=== PATIENT | female | born 1940 | race Caucasian/White ===

== ENCOUNTER 2018-07-18 12:03 | Inpatient (IN) ==
[2018-07-18 13:14] LABS: Basophils % 0.3 %; Eosinophils # 0.1 K/mcL (0.0-0.6); Eosinophils % 0.8 %; Hematocrit 34.2 % (35.3-44.9); Hemoglobin 11.3 g/dL (11.5-15.4); Immature Granulocytes % 1.7 % (0-4); Lymphocytes # 0.7 K/mcL (0.6-4.6); Lymphocytes % 5.5 %; Mean Corpuscular Hemoglobin 29.4 pg (28.0-33.3); Mean Corpuscular Volume 88.8 fL (83.0-100.0); Mean Platelet Volume 11.7 fL (9.4-12.4); Monocytes # 0.6 K/mcL (0.0-1.3); Monocytes % 4.8 %; Neutrophils # 10.2 K/mcL (1.6-8.9); Nucleated Red Blood Cells 0.3 /100 WBC (0); Platelet Count 174 K/mcL (140-400); Red Blood Count 3.85 M/mcL (3.82-4.97); Red Cell Distribution Width 16.5 % (11.5-14.5); Segmented Neutrophils % 86.9 %
[2018-07-18 14:08] LABS: Bilirubin,Urine Negative (Negative); Blood,Urine Negative (Negative); Color,Urine Yellow (Yellow); Glucose,Urine (UA) 100 mg/dL (Normal); Ketones,Urine Negative (Negative); Leukocyte Esterase,Urine Large (Negative); Nitrite,Urine Negative (Negative); PH,Urine 5.5 pH Units (5.0-8.0); Protein,Urine Negative (Neg-Trace); Specific Gravity,Urine 1.017 (1.010-1.025); Urobilinogen,Urine Normal (Normal)
[2018-07-18 14:09] LABS: Bacteria,Urine None Seen per hpf (None-Few); Hyaline Casts,Urine None Seen per lpf (None-Few); RBC,Urine 0-3 per hpf (0-3); Squamous Epithelial Cell,Urine Many per lpf (None-Few); WBC,Urine 50-100 per hpf (0-3)
[2018-07-18 14:11] LABS: Clarity,Urine Clear (Clear)
[2018-07-18] MEDS ORDERED: cefTRIAXone 1,000 MG in Water for inj. (sterile) 20 ML 10 ML IVP ONE (14:29)
--- NOTE | 2018-07-18 15:03 | Emergency Department Note ---
Disposition Clinical Impression: UTI (urinary tract infection) Qualifiers: Urinary tract infection type: site unspecified Hematuria presence: without hematuria Qualified Code(s): N39.0 - Urinary tract infection, site not specified Disposition: Admitted As Inpatient Condition: Good Referrals: Wiliam Rangel DO [Primary Care Provider] - General Adult HPI - General Chief complaint: ED Urogenital-Female Stated complaint: UTI Time Seen by Provider: 07/18/18 12:21 Source: patient, family Limitations: no limitations Nursing Notes Reviewed: Yes Vital Signs Reviewed: Yes - History of Present Illness HPI Narrative: Patient presents today for evaluation of generalized weakness. Patient states that she has had a urinary tract infection for the last 2 weeks. Patient states that she put it off but then was eventually put on Levaquin. Patient states Levaquin did not help her symptoms and she has had continued dysuria as well as declining strength. Patient states that she is now feeling mildly nauseous. She is not had fevers or chills. She lives with her who helps take care of her. Pain Scale: 0 - Related Data Allergies Allergy/AdvReac Type Severity Reaction Status Date / Time sulfamethoxazole Allergy Shakiness Verified 07/18/18 12:33 [From Bactrim] trimethoprim [From Bactrim] Allergy Shakiness Verified 07/18/18 12:33 Review of Systems: As Per HPI Constitutional: Reports: weakness. Denies: fever, chills Cardiovascular: Denies: chest pain, palpitations Respiratory: Denies: cough Gastrointestinal: Reports: nausea Genitourinary: Reports: dysuria Musculoskeletal: Denies: back pain Integumentary: Denies: rash Past Medical History - Past Medical History Medical history: Reports: coronary artery disease, diabetes, hypertension, renal disease - Social History Smoking Status: Never smoker Smokeless Tobacco Status: No Alcohol use: Reports: none Drug use: Reports: none Physical Exam General: Well appearing, no acute distress Head: Normocephalic Atraumatic Eyes: PERRL, EOMI ENT: Airway patent, no stridor Neck: supple Chest: Lungs clear to auscultation bilateral Cardiac: Regular rhythm Abdomen: soft, nontender, nondistended; no guarding, rebound, or tenderness to percussion Skin: No rash, normal skin tone Neuro: Alert and Oriented to person, place, and time; No focal deficit - General Limitations: no limitations General appearance: alert, in no apparent distress Course - Reevaluation(s) Reevaluation #1: Patient with mildly elevated white count and significant urinary tract infection. Sent for culture. Ceftriaxone given. Patient will be brought in secondary to failed outpatient management and clinically worsening condition. - Consultations Consultation #1: Discussed with hospitalist. Patient accepted for admission. Vital Signs Temperature 98.0 F 07/18/18 12:22 Pulse Rate 80 07/18/18 12:22 Respiratory Rate 15 07/18/18 12:22 Blood Pressure 111/63 07/18/18 12:22 O2 Sat by Pulse Oximetry 96 07/18/18 12:22 Temperature 98.0 F 07/18/18 12:30 Pulse Rate 78 07/18/18 13:41 Respiratory Rate 14 07/18/18 13:41 Blood Pressure 117/53 07/18/18 13:41 O2 Sat by Pulse Oximetry 98 07/18/18 13:41 Oxygen Delivery Oxygen Delivery Room Air Medical Decision Making - Lab Data Result diagrams: 07/18/18 12:39 Lab Results 07/18/18 07/18/18 Range/Units 12:39 13:50 WBC 11.7 H (4.3-11.1) K/mcL RBC 3.85 (3.82-4.97) M/mcL Hgb 11.3 L (11.5-15.4) g/dL Hct 34.2 L (35.3-44.9) % MCV 88.8 (83.0-100.0) fL MCH 29.4 (28.0-33.3) pg MCHC 33.0 (31.6-35.5) g/dL RDW 16.5 H (11.5-14.5) % Plt Count 174 (140-400) K/mcL MPV 11.7 (9.4-12.4) fL Immature Gran % 1.7 (0-4) % Seg Neutrophils % 86.9 % Lymphocytes % 5.5 % Monocytes % 4.8 % Eosinophils % 0.8 % Basophils % 0.3 % Neutrophils # 10.2 H (1.6-8.9) K/mcL Lymphocytes # 0.7 (0.6-4.6) K/mcL Monocytes # 0.6 (0.0-1.3) K/mcL Eosinophils # 0.1 (0.0-0.6) K/mcL Basophils # 0.0 (0.0-0.2) K/mcL Nucleated RBCs/100 WBC 0.3 H (0) /100 WBC Urine Color Yellow (Yellow) Urine Clarity Clear (Clear) Urine pH 5.5 (5.0-8.0) pH Units Ur Specific [place] 1.017 (1.010-1.025) Urine Protein Negative (Neg-Trace) mg/dL Urine Glucose (UA) 100 H (Normal) mg/dL Urine Ketones Negative (Negative) mg/dL Urine Blood Negative (Negative) Urine Nitrite Negative (Negative) Urine Bilirubin Negative (Negative) Urine Urobilinogen Normal (Normal) mg/dL Ur Leukocyte Esterase Large H (Negative) Urine Microscopic RBC 0-3 (0-3) per hpf Urine Microscopic WBC 50-100 H (0-3) per hpf Ur Squamous Epith Cells Many H (None-Few) per lpf Urine Bacteria None Seen (None-Few) per hpf Hyaline Casts None Seen (None-Few) per lpf Ur Culture Indicated? NO. A (NO)
[2018-07-18 15:25] LABS: Alanine Aminotransferase 15 Units/L (7-52); Albumin 2.8 g/dL (3.5-5.7); Albumin/Globulin Ratio 0.9 (1.1-2.2); Alkaline Phosphatase 49 Units/L (34-104); Aspartate Amino Transferase 12 Units/L (13-39); BUN/Creatinine Ratio 33 (6-26); Bilirubin,Total 0.4 mg/dL (0.3-1.0); Blood Urea Nitrogen 37 mg/dL (8-23); Calcium 9.9 mg/dL (8.6-10.3); Carbon Dioxide 24 mEq/L (23-29); Chloride 101 mEq/L (98-107); Glucose 317 mg/dL (70-105); Osmolality,Calculated 297 (280-300); Potassium 4.9 mEq/L (3.5-5.1); Sodium 133 mEq/L (136-145); Total Protein 5.8 g/dL (6.4-8.9); Troponin I < 0.03 ng/mL (< 0.04); eGFR For Non-African Americans 47 (> 60)
[2018-07-18] MEDS ORDERED: Naloxone 0.4 MG/ML INJ IVP PRN (15:37)
[2018-07-18] MEDS ORDERED: 0.9 % Sodium Chloride 500 ML IVC PRN (16:14)
[2018-07-18] MEDS: 0.9 % Sodium Chloride 1,000 ML IVC SCH (16:15)
[2018-07-18] MEDS ORDERED: Warfarin perPT PO SCH (16:15)
--- NOTE | 2018-07-18 16:20 | Internal Med History&Physical ---
Date of Encounter: 07/18/18 Time of Encounter: 15:50 Internal Medicine - H&P: HPI Chief complaint: unresolving dysuria Admitted From: Home History of present illness: Ms. Cleaning is a 77 year old female with history of diabetes, CAD status post PCI , DVT, hyperlipidemia, hypothyroidism, presented to the ED with persistent dysuria. She states that her symptom first started around 9 weeks ago but she only sought after medical size about 3 weeks ago when she was first given a course of Levaquin. According to the family, urine culture later came back with an organism that was sensitive to nitrofurantoin and it was switched to macrobid about a week ago. Despite a prolonged course of antibiotics, she continued to complain of dysuria and developed generalized weakness 2-3 days ago. Denies fever but has chills and nausea. No vomiting, flank pain, abdominal pain, or change in bowel habits. Denies any chest pain, shortness of breath, palpitation, orthopnea, PND, or leg swelling. No personal or family history of nephrolithiasis. In the ED, she was afebrile and hemodynamically stable. Investigation showed leukocytosis of 11.7, creatinine of 1.12 (unknown baseline) , and negative troponin. Urinalysis showed large amount of leukocyte esterase. Chest x-ray did not show any acute cardiopulmonary process. She was given IV Rocephin in the ED and admitted for further management. . Past Med Surg Social Fam HX - Past Medical History Attestation: Yes The following information was validated with the patient. Medical history: coronary artery disease, diabetes, hypertension - Past Surgical History Additional surgical history: PCI - Social History Smoking Status: Never smoker Smokeless Tobacco Status: No Alcohol use: none Drug use: none - Family History Mother History Unknown: Yes Father History Unknown: Yes Internal Medicine - H&P: Meds Atorvastatin Calcium [Lipitor] 20 mg PO QPM 07/18/18 [History] Gabapentin [Neurontin] 300 mg PO BID 07/18/18 [History] Insulin ASPART [NovoLOG] 5 unit SQ TID 07/18/18 [History] Insulin Glargine [Lantus] 4 unit SQ HS 07/18/18 [History] Levothyroxine [Synthroid] 100 mcg PO QAM 07/18/18 [History] Metformin HCl 1,000 mg PO BID 07/18/18 [History] Nitrofurantoin Monohyd/M-Cryst [Macrobid 100 mg Capsule] 100 mg PO BID 07/18/18 [History] Spironolactone [Aldactone] 25 mg PO DAILY 07/18/18 [History] Warfarin Sodium 7.5 mg PO DAILY 07/18/18 [History] 3 Allergy/AdvReac Type Severity Reaction Status Date / Time sulfamethoxazole Allergy Shakiness Verified 07/18/18 12:33 [From Bactrim] trimethoprim [From Bactrim] Allergy Shakiness Verified 07/18/18 12:33 All Systems PM: A 10-system review of systems was performed and is negative for pertinent findings except as documented above in the HPI. - Constitutional Vitals: Temp Pulse Resp BP Pulse Ox 98.0 F 63 18 98/47 99 07/18/18 12:30 07/18/18 15:52 07/18/18 15:52 07/18/18 15:52 07/18/18 15:52 Exam: General: Lethargic but alert and oriented x 3 HEENT:EOM, pupils equal, round and reactive. Cardiovascular:Normal S1 & S2, No JVD. Pulse regular. Lungs: clear to auscultation, no wheezes/rales Abdomen:Soft, non-tender, no rigidity. No CVA tenderness Extremities:No deformity or swelling Neurological:Normal cognition and motor skills. Non-focal Skin:Normal color, no rash, no lesions. Pulses:Carotid and radial pulses normal +2. Rest of the physical exam is non contributory Internal Med - H&P Results - Labs CBC & Chem 7: 07/18/18 12:39 07/18/18 12:39 Labs: Short CBC 07/18/18 Range/Units 12:39 WBC 11.7 H (4.3-11.1) K/mcL Hgb 11.3 L (11.5-15.4) g/dL Hct 34.2 L (35.3-44.9) % Plt Count 174 (140-400) K/mcL Neutrophils # 10.2 H (1.6-8.9) K/mcL BMP 07/18/18 12:39 Sodium 133 L Potassium 4.9 Chloride 101 Carbon Dioxide 24 BUN 37 H Creatinine 1.12 Glucose 317 H Calcium 9.9 Cardiac Enzymes 07/18/18 Range/Units 12:39 Troponin I < 0.03 (< 0.04) ng/mL Liver Function 07/18/18 Range/Units 12:39 Total Bilirubin 0.4 (0.3-1.0) mg/dL AST 12 L (13-39) Units/L ALT 15 (7-52) Units/L Alkaline Phosphatase 49 (34-104) Units/L Albumin 2.8 L (3.5-5.7) g/dL Urine 07/18/18 Range/Units 13:50 Urine Color Yellow (Yellow) Urine Clarity Clear (Clear) Urine pH 5.5 (5.0-8.0) pH Units Ur Specific [place] 1.017 (1.010-1.025) Urine Protein Negative (Neg-Trace) mg/dL Urine Glucose (UA) 100 H (Normal) mg/dL - Impressions ITS Impressions Chest X-Ray 07/18/18 12:27 IMPRESSION: 1. Probable small right pleural effusion with bibasilar opacities, likely reflecting atelectasis given low lung volumes. 2. Deformity of the right proximal humerus likely related to prior trauma. D/ / 07/18/2018 13:05:48 Ilana Morris MD / [email or web address] Interpreting Provider: Ilana Morris MD - Assessment and plan (1) UTI (urinary tract infection) Current Visit: Yes Status: Acute Assessment and plan: Presented with UTI failed outpatient therapy, concerning for complicated UTI. Was tried on Levaquin and nitrofurantoin as an outpatient without clinical improvement We will empirically start on IV Rocephin Blood culture and urine culture Check lactic acid Ultrasound retroperitoneum to rule out obstructive uropathy Qualifiers: Urinary tract infection type: site unspecified Hematuria presence: without hematuria Qualified Code(s): N39.0 - Urinary tract infection, site not specified (2) ENRIQUE (acute kidney injury) Current Visit: Yes Status: Acute Assessment and plan: Creatinine 1.12, unknown baseline. We will give her IV fluid overnight today and reassess. Ultrasound as above (3) CAD (coronary artery disease) Current Visit: Yes Status: Acute Assessment and plan: Does not seem to be on aspirin or beta angelina as an outpatient We will continue statin Qualifiers: Coronary Disease-Associated Artery/Lesion type: unspecified vessel or lesion type [place] vs. 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 We will check INR and defer Coumadin dosing to pharmacy Qualifiers: DVT location: lower extremity Affected thrombotic vein of extremity: unspecified vein of extremity Chronicity: unspecified Laterality: unspecified laterality Qualified Code(s): I82.409 - Acute embolism and thrombosis of unspecified deep veins of unspecified lower extremity - Time Spent With Patient Total time spent is greater than 50% in coordination of care (as documented) at patient's floor/unit and/or counseling patient:
[2018-07-18] MEDS ORDERED: Dextrose Gel 15 GM/37.5 ML TUBE PO PRN ×2 (16:27)
[2018-07-18] MEDS ORDERED: *HR* Dextrose 50 % in Water (Syg) 50 ML SYRINGE IVP PRN (16:27)
[2018-07-18] MEDS ORDERED: D5% in Water 1,000 ML IVC PRN (16:27)
[2018-07-18 16:39] LABS: Prothrombin Time 120.4 Seconds (9.4-12.1)
[2018-07-18 16:40] LABS: INR 10.7
[2018-07-18] MEDS ORDERED: *HR* Phytonadione 5 MG TABLET PO ONE (16:48)
--- NOTE | 2018-07-18 17:03 | Electrocardiograph Report ---
[employer] Test Date: 2018-07-18 Pat Name: Olivia Cleaning Department: [id number] Room: Gender: F Information Technology Instructor: : 1940 Requested By: [id number] Order Number: [id number] Reading MD: Otis Case Measurements Intervals [place] Rate: 72 P: 48 FL: 184 QRS: -29 QRSD: 96 T: 66 QT: 366 QTc: 401 Interpretive Statements Sinus rhythm Borderline left axis deviation Low voltage, precordial leads Consider anterior infarct Baseline wander in lead(s) I III aVL V1 Electronically Signed On 07-18-2018 17:01:08 EDT by Otis Case
[2018-07-18] MEDS: Insulin LISPRO 300 UNITS/3 ML VIAL SQ SCH ×3 (20:12→20:26)
[2018-07-18] MEDS: Gabapentin 300 MG CAPSULE PO SCH (20:25)
[2018-07-18] MEDS: Insulin DETEMIR 100 UNIT/ML X5UNITS SQ SCH (20:56)
[2018-07-19] MEDS: 0.9 % Sodium Chloride 1,000 ML IVC SCH (02:23)
[2018-07-19 03:32] LABS: Basophils % 0.3 %; Eosinophils # 0.1 K/mcL (0.0-0.6); Eosinophils % 1.7 %; Hematocrit 30.6 % (35.3-44.9); Hemoglobin 10.3 g/dL (11.5-15.4); Immature Granulocytes % 1.6 % (0-4); Lymphocytes # 0.8 K/mcL (0.6-4.6); Mean Corpuscular HGB Conc 33.7 g/dL (31.6-35.5); Mean Corpuscular Hemoglobin 30.7 pg (28.0-33.3); Mean Corpuscular Volume 91.3 fL (83.0-100.0); Mean Platelet Volume 11.4 fL (9.4-12.4); Monocytes # 0.5 K/mcL (0.0-1.3); Neutrophils # 5.9 K/mcL (1.6-8.9); Platelet Count 159 K/mcL (140-400); Red Blood Count 3.35 M/mcL (3.82-4.97); Red Cell Distribution Width 16.3 % (11.5-14.5); Segmented Neutrophils % 78.4 %
[2018-07-19 03:44] LABS: Prothrombin Time 16.8 Seconds (9.4-12.1)
[2018-07-19 03:45] LABS: INR 1.5
[2018-07-19 06:38] LABS: BUN/Creatinine Ratio 30 (6-26); Blood Urea Nitrogen 23 mg/dL (8-23); Calcium 9.5 mg/dL (8.6-10.3); Carbon Dioxide 25 mEq/L (23-29); Chloride 110 mEq/L (98-107); Glucose 178 mg/dL (70-105); Osmolality,Calculated 296 (280-300); Potassium 4.2 mEq/L (3.5-5.1); Sodium 139 mEq/L (136-145); eGFR For Non-African Americans > 60 (> 60)
[2018-07-19] MEDS: Insulin LISPRO 300 UNITS/3 ML VIAL SQ SCH ×7 (08:39→21:59)
[2018-07-19] MEDS: Gabapentin 300 MG CAPSULE PO SCH ×2 (08:44→20:16)
[2018-07-19] MEDS ORDERED: *HR* Warfarin 7.5 MG TABLET PO SCH (09:00)
--- NOTE | 2018-07-19 11:08 | Internal Med Progress Note ---
Hospitalist Progress Note - Encounter Date of Encounter: 07/19/18 Time of Encounter: 10:20 - Subjective Interval History: Patient states that she feels stronger and has more appetite, denies fever/ chills, N/V, or flank pain. - Exam Vitals: Temp Pulse Resp BP Pulse Ox 97.7 F 67 15 139/68 94 07/19/18 07:37 07/19/18 07:37 07/19/18 07:37 07/19/18 07:37 07/19/18 07:37 Exam: General: Alert and oriented x 3 Cardiovascular:Normal S1 & S2, No JVD. Pulse regular. Lungs: clear to auscultation, no wheezes/rales Abdomen:Soft, non-tender, no rigidity. No CVA tenderness Neurological:Normal cognition and motor skills. Non-focal - Assessment and Plan (1) UTI (urinary tract infection) Current Visit: Yes Status: Acute Assessment and Plan: Presented with UTI failed outpatient therapy, concerning for complicated UTI. Was tried on Levaquin and nitrofurantoin as an outpatient without clinical improvement lactic acid normal Improving on IV Rocephin, D2 today Blood culture and urine culture results pending Ultrasound retroperitoneum today to rule out obstructive uropathy (2) ENRIQUE (acute kidney injury) Current Visit: Yes Status: Acute Assessment and Plan: Creatinine 1.12 -> 0.77, improving on IVF Ultrasound as above (3) DVT (deep venous thrombosis) Current Visit: No Status: Acute Assessment and Plan: Prior history of DVT on Coumadin. Had supratherapeutic INR yesterday for which she was given 1 dose of Vit K 1.5 today, resume coumadin, dosing per pharmacy (4) CAD (coronary artery disease) Current Visit: Yes Status: Acute Assessment and Plan: Does not seem to be on aspirin or beta angelina as an outpatient We will continue statin (5) Diabetes mellitus Current Visit: Yes Status: Acute Assessment and Plan: On Lantus 40 units and lispro 5 units 3 times a day with meals in addition to metformin 1g BID will hold off on OHGA, resume home dose of insulin with LDSS DVT Prophylaxis: coumadin as above - Time Spent with Patient Total time spent is greater than 50% in coordination of care (as documented) at patient's floor/unit and/or counseling patient: Plan of Care Discussed with: nurse Internal Medicine: Result - Labs CBC & Chem 7: 07/19/18 03:04 07/19/18 05:54 Labs: Short CBC 07/19/18 Range/Units 03:04 WBC 7.5 (4.3-11.1) K/mcL Hgb 10.3 L (11.5-15.4) g/dL Hct 30.6 L (35.3-44.9) % Plt Count 159 (140-400) K/mcL Neutrophils # 5.9 (1.6-8.9) K/mcL BMP 07/19/18 05:54 Sodium 139 Potassium 4.2 Chloride 110 H Carbon Dioxide 25 BUN 23 Creatinine 0.77 Glucose 178 H Calcium 9.5 - ABG Interpretation ABG results: PT/INR, D-dimer PT 16.8 Seconds (9.4-12.1) H D 07/19/18 03:04 Consult Discharge Plan - Plan Referrals: Wiliam Rangel DO [Primary Care Provider] - (1) UTI (urinary tract infection) Qualifiers: Urinary tract infection type: site unspecified Hematuria presence: without hematuria Qualified Code(s): N39.0 - Urinary tract infection, site not specified (3) DVT (deep venous thrombosis) Qualifiers: DVT location: lower extremity Affected thrombotic vein of extremity: unspecified vein of extremity Chronicity: unspecified Laterality: unspecified laterality Qualified Code(s): I82.409 - Acute embolism and thrombosis of unspecified deep veins of unspecified lower extremity (4) CAD (coronary artery disease) Qualifiers: Coronary Disease-Associated Artery/Lesion type: unspecified vessel or lesion type [place] vs. transplanted heart: [place] heart Associated angina: without angina Qualified Code(s): I25.10 - Atherosclerotic heart disease of [place] coronary artery without angina pectoris (5) Diabetes mellitus Qualifiers: Diabetes mellitus type: type 2 Diabetes mellitus fdc insulin use: with fdc use Diabetes mellitus complication status: with unspecified complications Qualified Code(s): E11.8 - Type 2 diabetes mellitus with unspecified complications; Z79.4 - termite helper (current) use of insulin
[2018-07-19 13:47] LABS: Acinetobacter baumannii by PCR Not Detected (Not Detect); Candida albicans by PCR Not Detected (Not Detect); Candida glabrata by PCR Not Detected (Not Detect); Candida krusei by PCR Not Detected (Not Detect); Candida parapsilosis by PCR Not Detected (Not Detect); Candida tropicalis by PCR Not Detected (Not Detect); Enterobacter cloacae Cmplx PCR Not Detected (Not Detect); Enterobacteriaceae by PCR Not Detected (Not Detect); Enterococcus by PCR Not Detected (Not Detect); Escherichia coli by PCR Not Detected (Not Detect); Klebsiella oxytoca by PCR Not Detected (Not Detect); Klebsiella pneumoniae by PCR Not Detected (Not Detect); Proteus by PCR Not Detected (Not Detect); Pseudomonas aeruginosa by PCR Not Detected (Not Detect); Serratia marcescens by PCR Not Detected (Not Detect); Staphylococcus aureus by PCR Not Detected (Not Detect); Staphylococcus by PCR DETECTED (Not Detect); Streptococcus agalactiae(B)PCR Not Detected (Not Detect); Streptococcus by PCR Not Detected (Not Detect); Streptococcus pneumoniae PCR Not Detected (Not Detect); Streptococcus pyogenes (A) PCR Not Detected (Not Detect); blaKPC Carbapenem-Resist Gene Not Detected (Not Detect); mecA Methicillin-Resist Gene DETECTED (Not Detect); vanA/B Vancomycin-Resist Genes Not Detected (Not Detect)
[2018-07-19] MEDS: cefTRIAXone 1,000 MG in Water for inj. (sterile) 20 ML 10 ML IVP SCH (17:19)
[2018-07-19] MEDS ORDERED: *HR* Warfarin 7.5 MG TABLET PO ONE (18:00)
[2018-07-19] MEDS: Insulin DETEMIR 100 UNIT/ML X5UNITS SQ SCH (20:16)
[2018-07-20 07:43] LABS: INR 1.5
[2018-07-20] MEDS: Gabapentin 300 MG CAPSULE PO SCH ×2 (08:04→21:43)
[2018-07-20] MEDS: Insulin LISPRO 300 UNITS/3 ML VIAL SQ SCH ×7 (08:36→21:44)
[2018-07-20] MEDS ORDERED: *HR* Labetalol 20 MG/4 ML SYRINGE IVP PRN (10:49)
--- NOTE | 2018-07-20 10:52 | Internal Med Progress Note ---
Hospitalist Progress Note - Encounter Date of Encounter: 07/20/18 Time of Encounter: 10:00 - Subjective Interval History: Continues to feel stronger and eating well. No fever/chills, N/V, or flank pain. Dysuria improving. - Exam Vitals: Temp Pulse Resp BP Pulse Ox 98.1 F 80 16 172/70 95 07/20/18 08:00 07/20/18 08:00 07/20/18 08:00 07/20/18 08:00 07/20/18 08:00 Exam: General: Alert and oriented x 3 Cardiovascular:Normal S1 & S2, No JVD. Pulse regular. Lungs: clear to auscultation, no wheezes/rales Abdomen:Soft, non-tender, no rigidity. No CVA tenderness Neurological:Normal cognition and motor skills. Non-focal - Assessment and Plan (1) UTI (urinary tract infection) Current Visit: Yes Status: Acute Assessment and Plan: Presented with UTI failed outpatient therapy, concerning for complicated UTI. Was tried on Levaquin and nitrofurantoin as an outpatient without clinical improvement lactic acid normal Improving on IV Rocephin, D3 today US retroperitoneum unremarkable Blood cultures came out +ve for GPC (not S. aureus) with methicillin resistant gene in 1 set only -> suspect contamination, unlikely significant as patient is improving on rocephin only nevertheless, till final speciation and sensitivity returns, will give a few doses of IV Vanc urine culture results pending (2) ENRIQUE (acute kidney injury) Current Visit: Yes Status: Acute Assessment and Plan: Creatinine 1.12 -> 0.77, improved on IVF and now eating well Ultrasound finding as above (3) DVT (deep venous thrombosis) Current Visit: No Status: Acute Assessment and Plan: Prior history of DVT on Coumadin. Had supratherapeutic INR yesterday for which she was given 1 dose of Vit K now subtherapeutic resume coumadin, dosing per pharmacy (4) CAD (coronary artery disease) Current Visit: Yes Status: Acute Assessment and Plan: Does not seem to be on aspirin or beta angelina as an outpatient We will continue statin (5) Diabetes mellitus Current Visit: Yes Status: Acute Assessment and Plan: On Lantus 40 units and lispro 5 units 3 times a day with meals in addition to metformin 1g BID will hold off on OHGA, resume home dose of insulin with LDSS BG 120-140 yesterday (6) Hypertension Current Visit: Yes Status: Acute Assessment and Plan: started to become hypertensive, was on aldactone at home which is on hold given her history of CAD, would benefit from bb PRN labetalol will consider starting her on coreg upon discharge DVT Prophylaxis: coumadin as above - Time Spent with Patient Total time spent is greater than 50% in coordination of care (as documented) at patient's floor/unit and/or counseling patient: Plan of Care Discussed with: nurse Internal Medicine: Result - Labs CBC & Chem 7: 07/19/18 03:04 07/19/18 05:54 - ABG Interpretation ABG results: PT/INR, D-dimer PT 17.0 Seconds (9.4-12.1) H 07/20/18 06:57 - Impressions Impressions Retroperitoneum Ultrasound 07/19/18 14:00 IMPRESSION: Unremarkable ultrasound of the kidneys and urinary bladder. D/ / Betty Duran Cha, MD / Betty Duran Cha, MD Interpreting Provider: Betty Duran Cha, MD Consult Discharge Plan - Plan Referrals: Wiliam Rangel, [Primary Care Provider] - (1) UTI (urinary tract infection) Qualifiers: Urinary tract infection type: site unspecified Hematuria presence: without hematuria Qualified Code(s): N39.0 - Urinary tract infection, site not specified (3) DVT (deep venous thrombosis) Qualifiers: DVT location: lower extremity Affected thrombotic vein of extremity: unspecified vein of extremity Chronicity: unspecified Laterality: unspecified laterality Qualified Code(s): I82.409 - Acute embolism and thrombosis of unspecified deep veins of unspecified lower extremity (4) CAD (coronary artery disease) Qualifiers: Coronary Disease-Associated Artery/Lesion type: unspecified vessel or lesion type [place] vs. transplanted heart: [place] heart Associated angina: without angina Qualified Code(s): I25.10 - Atherosclerotic heart disease of [place] coronary artery without angina pectoris (5) Diabetes mellitus Qualifiers: Diabetes mellitus type: type 2 Diabetes mellitus terminal make up operator insulin use: with terminal make up operator use Diabetes mellitus complication status: with unspecified complications Qualified Code(s): E11.8 - Type 2 diabetes mellitus with unspecified complications; Z79.4 - group home (current) use of insulin
[2018-07-20] MEDS: cefTRIAXone 1,000 MG in Water for inj. (sterile) 20 ML 10 ML IVP SCH (16:27)
[2018-07-20] MEDS ORDERED: *HR* Warfarin 7.5 MG TABLET PO ONE (18:00)
[2018-07-20] MEDS ORDERED: Insulin DETEMIR 100 UNIT/ML X5UNITS SQ SCH (21:00)
[2018-07-21 04:22] LABS: Basophils % 0.4 %; Eosinophils # 0.2 K/mcL (0.0-0.6); Hematocrit 31.9 % (35.3-44.9); Hemoglobin 10.5 g/dL (11.5-15.4); Immature Granulocytes % 1.4 % (0-4); Lymphocytes # 1.8 K/mcL (0.6-4.6); Lymphocytes % 23.9 %; Mean Corpuscular HGB Conc 32.9 g/dL (31.6-35.5); Mean Corpuscular Hemoglobin 29.7 pg (28.0-33.3); Mean Corpuscular Volume 90.1 fL (83.0-100.0); Mean Platelet Volume 10.7 fL (9.4-12.4); Monocytes # 0.7 K/mcL (0.0-1.3); Monocytes % 9.7 %; Neutrophils # 4.8 K/mcL (1.6-8.9); Platelet Count 193 K/mcL (140-400); Red Blood Count 3.54 M/mcL (3.82-4.97); Red Cell Distribution Width 16.4 % (11.5-14.5); Segmented Neutrophils % 62.6 %
[2018-07-21 04:23] LABS: INR 3.1; Prothrombin Time 34.8 Seconds (9.4-12.1)
[2018-07-21 04:38] LABS: BUN/Creatinine Ratio 20 (6-26); Blood Urea Nitrogen 13 mg/dL (8-23); Calcium 9.9 mg/dL (8.6-10.3); Carbon Dioxide 30 mEq/L (23-29); Chloride 105 mEq/L (98-107); Glucose 146 mg/dL (70-105); Osmolality,Calculated 289 (280-300); Potassium 4.2 mEq/L (3.5-5.1); Sodium 138 mEq/L (136-145); eGFR For Non-African Americans > 60 (> 60)
[2018-07-21] MEDS: Insulin LISPRO 300 UNITS/3 ML VIAL SQ SCH ×7 (07:56→22:04)
--- NOTE | 2018-07-21 08:26 | Internal Med History&Physical ---
Date of Encounter: 07/21/18 Internal Medicine - H&P: HPI History of present illness: Ms. Cleaning is a 77 year old female Past Med Surg Social Fam HX - Past Medical History Medical history: coronary artery disease, diabetes, hypertension - Past Surgical History Additional surgical history: PCI - Social History Smoking Status: Never smoker Smokeless Tobacco Status: No Alcohol use: none Drug use: none - Family History Mother History Unknown: Yes Father History Unknown: Yes Internal Medicine - H&P: Meds Atorvastatin Calcium [Lipitor] 20 mg PO QPM 07/18/18 [History] Gabapentin [Neurontin] 300 mg PO BID 07/18/18 [History] Insulin ASPART [NovoLOG] 5 unit SQ TID 07/18/18 [History] Insulin Glargine [Lantus] 4 unit SQ HS 07/18/18 [History] Levothyroxine [Synthroid] 100 mcg PO QAM 07/18/18 [History] Metformin HCl 1,000 mg PO BID 07/18/18 [History] Nitrofurantoin Monohyd/M-Cryst [Macrobid 100 mg Capsule] 100 mg PO BID 07/18/18 [History] Spironolactone [Aldactone] 25 mg PO DAILY 07/18/18 [History] Warfarin Sodium 7.5 mg PO DAILY 07/18/18 [History] 3 Allergy/AdvReac Type Severity Reaction Status Date / Time sulfamethoxazole Allergy Shakiness Verified 07/18/18 12:33 [From Bactrim] trimethoprim [From Bactrim] Allergy Shakiness Verified 07/18/18 12:33 All Systems PM: A 10-system review of systems was performed and is negative for pertinent findings except as documented above in the HPI. - Constitutional Constitutional: no chills, no fever(s), no night sweats - EENT Eyes: no change in vision, no discharge, no pain, no photophobia - Cardiovascular Cardiovascular ROS IM: no chest pain, no diaphoresis, no dyspnea, no lightheadedness, no palpitations, no syncope - Respiratory Respiratory: snoring, stridor, pain on inspiration, no dyspnea, no hemoptysis, no dyspnea on exertion - Gastrointestinal Gastrointestinal: belching, change in bowel habits, dysphagia, excessive flatus , fecal incontinence, heartburn, no abdominal pain, no diarrhea, no hematemesis , no hematochezia, no melena, no nausea, no vomiting - Constitutional Vitals: Temp Pulse Resp BP Pulse Ox 98.0 F 55 14 149/71 92 07/21/18 07:01 07/21/18 07:01 07/21/18 07:01 07/21/18 07:01 07/21/18 07:01 - Head Head exam: Present: atraumatic, normocephalic - Neck Neck exam general surgery: Present: tenderness, supple, trachea midline. Absent : lymphadenopathy, nuchal rigidity Internal Med - H&P Results - Labs CBC & Chem 7: 07/21/18 04:02 07/21/18 04:02 Labs: Short CBC 07/21/18 Range/Units 04:02 WBC 7.6 (4.3-11.1) K/mcL Hgb 10.5 L (11.5-15.4) g/dL Hct 31.9 L (35.3-44.9) % Plt Count 193 (140-400) K/mcL Neutrophils # 4.8 (1.6-8.9) K/mcL BMP 07/21/18 04:02 Sodium 138 Potassium 4.2 Chloride 105 Carbon Dioxide 30 H BUN 13 Creatinine 0.66 Glucose 146 H Calcium 9.9 - ABG Interpretation Interpretation: ABG interpreted by me Interpretation: normal - EKG Data Prior EKG available for review: yes Interpretation IM: normal EKG - Impressions ITS Impressions Retroperitoneum Ultrasound 07/19/18 14:00 IMPRESSION: Unremarkable ultrasound of the kidneys and urinary bladder. D/ / Betty Duran Cha, MD / Betty Duran Cha, MD Interpreting Provider: Betty Duran Cha, MD - Assessment and plan (1) DVT (deep venous thrombosis) Current Visit: No Status: Acute Qualifiers: DVT location: lower extremity Affected thrombotic vein of extremity: unspecified vein of extremity Chronicity: unspecified Laterality: unspecified laterality Qualified Code(s): I82.409 - Acute embolism and thrombosis of unspecified deep veins of unspecified lower extremity (2) UTI (urinary tract infection) Current Visit: Yes Status: Acute Qualifiers: Urinary tract infection type: site unspecified Hematuria presence: without hematuria Qualified Code(s): N39.0 - Urinary tract infection, site not specified (3) CAD (coronary artery disease) Current Visit: Yes Status: Acute Qualifiers: Coronary Disease-Associated Artery/Lesion type: unspecified vessel or lesion type [place] vs. transplanted heart: [place] heart Associated angina: without angina Qualified Code(s): I25.10 - Atherosclerotic heart disease of [place] coronary artery without angina pectoris (4) ENRIQUE (acute kidney injury) Current Visit: Yes Status: Acute (5) Diabetes mellitus Current Visit: Yes Status: Acute Qualifiers: Diabetes mellitus type: type 2 Diabetes mellitus retirement insulin use: with retirement use Diabetes mellitus complication status: with unspecified complications Qualified Code(s): E11.8 - Type 2 diabetes mellitus with unspecified complications; Z79.4 - skilled nursing (current) use of insulin (6) Hypertension Current Visit: Yes Status: Acute - Time Spent With Patient Total time spent is greater than 50% in coordination of care (as documented) at patient's floor/unit and/or counseling patient:
[2018-07-21] MEDS: Gabapentin 300 MG CAPSULE PO SCH ×2 (08:34→22:04)
[2018-07-21 10:38] LABS: Enterococcus by PCR Not Detected (Not Detect); Staphylococcus aureus by PCR Not Detected (Not Detect); Staphylococcus by PCR DETECTED (Not Detect); mecA Methicillin-Resist Gene Not Detected (Not Detect)
[2018-07-21 10:39] LABS: Acinetobacter baumannii by PCR Not Detected (Not Detect); Candida albicans by PCR Not Detected (Not Detect); Candida glabrata by PCR Not Detected (Not Detect); Candida krusei by PCR Not Detected (Not Detect); Candida parapsilosis by PCR Not Detected (Not Detect); Candida tropicalis by PCR Not Detected (Not Detect); Enterobacter cloacae Cmplx PCR Not Detected (Not Detect); Enterobacteriaceae by PCR Not Detected (Not Detect); Escherichia coli by PCR Not Detected (Not Detect); Klebsiella oxytoca by PCR Not Detected (Not Detect); Klebsiella pneumoniae by PCR Not Detected (Not Detect); Proteus by PCR Not Detected (Not Detect); Pseudomonas aeruginosa by PCR Not Detected (Not Detect); Serratia marcescens by PCR Not Detected (Not Detect); Streptococcus agalactiae(B)PCR Not Detected (Not Detect); Streptococcus by PCR Not Detected (Not Detect); Streptococcus pneumoniae PCR Not Detected (Not Detect); Streptococcus pyogenes (A) PCR Not Detected (Not Detect)
--- NOTE | 2018-07-21 11:35 | Internal Med Progress Note ---
Hospitalist Progress Note - Encounter Date of Encounter: 07/21/18 Time of Encounter: 10:05 - Subjective Interval History: Continues to feel stronger and eating well. No fever/chills, N/V, or flank pain. Dysuria improving. - Exam Vitals: Temp Pulse Resp BP Pulse Ox 98.4 F 78 14 149/66 94 07/21/18 10:37 07/21/18 10:37 07/21/18 10:37 07/21/18 10:37 07/21/18 10:37 Exam: General: Alert and oriented x 3 Cardiovascular:Normal S1 & S2, No JVD. Pulse regular. Lungs: clear to auscultation, no wheezes/rales Abdomen:Soft, non-tender, no rigidity. No CVA tenderness Neurological:Normal cognition and motor skills. Non-focal - Assessment and Plan (1) UTI (urinary tract infection) Current Visit: Yes Status: Acute Assessment and Plan: Presented with UTI failed outpatient therapy, concerning for complicated UTI. Was tried on Levaquin and nitrofurantoin as an outpatient without clinical improvement lactic acid normal Improving on IV Rocephin, D4 today US retroperitoneum unremarkable urine culture -ve 1 set of Blood c/s on 07/18 came out +ve for for S. epidermidis -> suspected contamination but confusingly, repeat c/s on 07/20 is also growing GPC in 1 set. continue IV Vanc till the final speciation of the repeat culture is completed PT/OT (2) ENRIQUE (acute kidney injury) Current Visit: Yes Status: Acute Assessment and Plan: Creatinine 1.12 -> 0.77 -> 0.66, improved on IVF and now eating well Ultrasound finding as above (3) CAD (coronary artery disease) Current Visit: Yes Status: Acute Assessment and Plan: Does not seem to be on aspirin or beta angelina as an outpatient We will continue statin (4) Diabetes mellitus Current Visit: Yes Status: Acute Assessment and Plan: On Lantus 40 units and lispro 5 units 3 times a day with meals in addition to metformin 1g BID will hold off on OHGA, resume home dose of insulin with LDSS BG 120-140 yesterday (5) Hypertension Current Visit: Yes Status: Acute Assessment and Plan: started to become hypertensive, was on aldactone at home which is on hold given her history of CAD, would benefit from bb PRN labetalol start coreg 3.125mg BID (6) DVT (deep venous thrombosis) Current Visit: No Status: Acute Assessment and Plan: Prior history of DVT on Coumadin. Had supratherapeutic INR yesterday for which she was given 1 dose of Vit K was subtherapeutic for 2 days -> today at 3.1 resume coumadin, dosing per pharmacy - Time Spent with Patient Total time spent is greater than 50% in coordination of care (as documented) at patient's floor/unit and/or counseling patient: Plan of Care Discussed with: nurse Internal Medicine: Result - Labs CBC & Chem 7: 07/21/18 04:02 07/21/18 04:02 Labs: Short CBC 07/21/18 Range/Units 04:02 WBC 7.6 (4.3-11.1) K/mcL Hgb 10.5 L (11.5-15.4) g/dL Hct 31.9 L (35.3-44.9) % Plt Count 193 (140-400) K/mcL Neutrophils # 4.8 (1.6-8.9) K/mcL BMP 07/21/18 04:02 Sodium 138 Potassium 4.2 Chloride 105 Carbon Dioxide 30 H BUN 13 Creatinine 0.66 Glucose 146 H Calcium 9.9 - ABG Interpretation ABG results: PT/INR, D-dimer PT 34.8 Seconds (9.4-12.1) H D 07/21/18 04:02 Consult Discharge Plan - Plan Referrals: Wiliam Rangel DO [Primary Care Provider] - (1) UTI (urinary tract infection) Qualifiers: Urinary tract infection type: site unspecified Hematuria presence: without hematuria Qualified Code(s): N39.0 - Urinary tract infection, site not specified (3) CAD (coronary artery disease) Qualifiers: Coronary Disease-Associated Artery/Lesion type: unspecified vessel or lesion type [place] vs. transplanted heart: [place] heart Associated angina: without angina Qualified Code(s): I25.10 - Atherosclerotic heart disease of [place] coronary artery without angina pectoris (4) Diabetes mellitus Qualifiers: Diabetes mellitus type: type 2 Diabetes mellitus ferry terminal agent insulin use: with usp use Diabetes mellitus complication status: with unspecified complications Qualified Code(s): E11.8 - Type 2 diabetes mellitus with unspecified complications; Z79.4 - longterm (current) use of insulin (6) DVT (deep venous thrombosis) Qualifiers: DVT location: lower extremity Affected thrombotic vein of extremity: unspecified vein of extremity Chronicity: unspecified Laterality: unspecified laterality Qualified Code(s): I82.409 - Acute embolism and thrombosis of unspecified deep veins of unspecified lower extremity
[2018-07-21] MEDS: cefTRIAXone 1,000 MG in Water for inj. (sterile) 20 ML 10 ML IVP SCH (18:43)
[2018-07-21] MEDS: Insulin DETEMIR 100 UNIT/ML X5UNITS SQ SCH (22:05)
[2018-07-22] MEDS: Insulin LISPRO 300 UNITS/3 ML VIAL SQ SCH ×7 (08:13→21:06)
[2018-07-22] MEDS: Gabapentin 300 MG CAPSULE PO SCH ×2 (08:14→21:06)
[2018-07-22 08:47] LABS: INR 2.4; Prothrombin Time 26.9 Seconds (9.4-12.1)
--- NOTE | 2018-07-22 14:12 | Internal Med Progress Note ---
Hospitalist Progress Note - Encounter Date of Encounter: 07/22/18 Time of Encounter: 13:50 - Subjective Interval History: Feels well enough to go home. No fever/chills, N/V, dysuria, or flank pain. - Exam Vitals: Temp Pulse Resp BP Pulse Ox 98.2 F 82 16 130/73 97 07/22/18 10:40 07/22/18 10:40 07/22/18 10:40 07/22/18 10:40 07/22/18 10:40 Exam: General: Alert and oriented x 3 Cardiovascular:Normal S1 & S2, No JVD. Pulse regular. Lungs: clear to auscultation, no wheezes/rales Abdomen:Soft, non-tender, no rigidity. No CVA tenderness Neurological:Normal cognition and motor skills. Non-focal - Assessment and Plan (1) UTI (urinary tract infection) Current Visit: Yes Status: Acute Assessment and Plan: Presented with UTI failed outpatient therapy, concerning for complicated UTI. Was tried on Levaquin and nitrofurantoin as an outpatient without clinical improvement lactic acid normal, US retroperitoneum unremarkable urine culture -ve Improving on IV Rocephin, D5 today 1 set of Blood c/s on 07/18 came out +ve for for S. epidermidis -> suspected contamination However, confusingly, repeat c/s on 07/20 is also growing GPC in 1 set. continue IV Vanc till the final speciation of the repeat culture is completed PT/OT recommended SNF placement, SW consult to discuss with family on discharge planning (2) ENRIQUE (acute kidney injury) Current Visit: Yes Status: Acute Assessment and Plan: Creatinine improved on IVF and now eating well Ultrasound finding as above (3) CAD (coronary artery disease) Current Visit: Yes Status: Acute Assessment and Plan: Does not seem to be on aspirin or beta angelina as an outpatient We will continue statin bb started for HTN as below (4) Diabetes mellitus Current Visit: Yes Status: Acute Assessment and Plan: On Lantus 40 units and lispro 5 units 3 times a day with meals in addition to metformin 1g BID will hold off on OHGA, resume home dose of insulin with LDSS (5) Hypertension Current Visit: Yes Status: Acute Assessment and Plan: started to become hypertensive, was on aldactone at home which is on hold given her history of CAD, would benefit from bb PRN labetalol coreg 3.125mg BID started yesterday, titrate up today (6) Physical deconditioning Current Visit: Yes Status: Acute Assessment and Plan: PT/OT recommended SNIF placement, social work consult to discuss the discharge planning with family. (7) DVT (deep venous thrombosis) Current Visit: No Status: Acute Assessment and Plan: Prior history of DVT on Coumadin. Had supratherapeutic INR of 10.7 initially for which she was given 1 dose of Vit K INR 2.4 today coumadin dosing per pharmacy - Time Spent with Patient Total time spent is greater than 50% in coordination of care (as documented) at patient's floor/unit and/or counseling patient: Plan of Care Discussed with: social work Internal Medicine: Result - Labs CBC & Chem 7: 07/21/18 04:02 07/21/18 04:02 - ABG Interpretation ABG results: PT/INR, D-dimer PT 26.9 Seconds (9.4-12.1) H 07/22/18 08:15 Consult Discharge Plan - Plan Referrals: Wiliam Rangel DO [Primary Care Provider] - (1) UTI (urinary tract infection) Qualifiers: Urinary tract infection type: site unspecified Hematuria presence: without hematuria Qualified Code(s): N39.0 - Urinary tract infection, site not specified (3) CAD (coronary artery disease) Qualifiers: Coronary Disease-Associated Artery/Lesion type: unspecified vessel or lesion type [place] vs. transplanted heart: [place] heart Associated angina: without angina Qualified Code(s): I25.10 - Atherosclerotic heart disease of [place] coronary artery without angina pectoris (4) Diabetes mellitus Qualifiers: Diabetes mellitus type: type 2 Diabetes mellitus bed bug exterminator insulin use: with correction use Diabetes mellitus complication status: with unspecified complications Qualified Code(s): E11.8 - Type 2 diabetes mellitus with unspecified complications; Z79.4 - buttermaker (current) use of insulin (7) DVT (deep venous thrombosis) Qualifiers: DVT location: lower extremity Affected thrombotic vein of extremity: unspecified vein of extremity Chronicity: unspecified Laterality: unspecified laterality Qualified Code(s): I82.409 - Acute embolism and thrombosis of unspecified deep veins of unspecified lower extremity
[2018-07-22] MEDS ORDERED: *HR* Warfarin 7.5 MG TABLET PO ONE (18:00)
[2018-07-22] MEDS: cefTRIAXone 1,000 MG in Water for inj. (sterile) 20 ML 10 ML IVP SCH (18:57)
[2018-07-22] MEDS: Insulin DETEMIR 100 UNIT/ML X5UNITS SQ SCH (21:06)
[2018-07-23] MEDS: Insulin LISPRO 300 UNITS/3 ML VIAL SQ SCH ×7 (07:45→22:15)
[2018-07-23 07:46] LABS: Basophils % 0.3 %; Eosinophils # 0.2 K/mcL (0.0-0.6); Eosinophils % 2.1 %; Hematocrit 33.4 % (35.3-44.9); Immature Granulocytes % 0.8 % (0-4); Lymphocytes # 2.1 K/mcL (0.6-4.6); Lymphocytes % 29.4 %; Mean Corpuscular HGB Conc 32.9 g/dL (31.6-35.5); Mean Corpuscular Hemoglobin 30.7 pg (28.0-33.3); Mean Corpuscular Volume 93.3 fL (83.0-100.0); Mean Platelet Volume 10.9 fL (9.4-12.4); Monocytes # 0.6 K/mcL (0.0-1.3); Monocytes % 8.3 %; Neutrophils # 4.2 K/mcL (1.6-8.9); Platelet Count 228 K/mcL (140-400); Red Blood Count 3.58 M/mcL (3.82-4.97); Segmented Neutrophils % 59.1 %
[2018-07-23 08:01] LABS: INR 1.8; Prothrombin Time 20.3 Seconds (9.4-12.1)
[2018-07-23 08:09] LABS: BUN/Creatinine Ratio 17 (6-26); Blood Urea Nitrogen 13 mg/dL (8-23); Carbon Dioxide 33 mEq/L (23-29); Chloride 105 mEq/L (98-107); Glucose 85 mg/dL (70-105); Osmolality,Calculated 291 (280-300); Potassium 4.3 mEq/L (3.5-5.1); Sodium 141 mEq/L (136-145); eGFR For Non-African Americans > 60 (> 60)
[2018-07-23] MEDS ORDERED: Aminoglycoside Consult 1 EACH MC ONE (08:18)
[2018-07-23] MEDS: Gabapentin 300 MG CAPSULE PO SCH ×2 (10:45→22:14)
--- NOTE | 2018-07-23 14:55 | Infectious Disease Consult ---
Date of Encounter: 07/23/18 Time of Encounter: 12:15 Assessment and Plan (1) Sepsis Status: Acute Assessment and plan: The patient had two SIRS criteria including leukocytosis and fevers at home. Likely secondary to UTI. Improved. WBC has normalized. She has been afebrile since admission. Blood cultures drawn 07/18/18 were positive 1/2 sets for S. epi. Repeat blood cultures 07/20/18 were positive 1/2 sets for S. hominis. Qualifiers: Sepsis type: sepsis due to unspecified organism Qualified Code(s): A41.9 - Sepsis, unspecified organism (2) Bacteremia Status: Acute Assessment and plan: Causative organism: S. epi and S. hominis. Blood cultures drawn 07/18/18 were positive 1/2 sets for S. epi. Repeat blood cultures drawn 07/20/18 were positive 1/2 sets for S. hominis. Given the clinical picture, likely a contaminant. Repeat blood cultures x 2 sets now. Discontinue Vancomycin and observe. (3) UTI (urinary tract infection) Status: Acute Assessment and plan: Causative organism unclear, but likely E. coli based on the previous urine cultures from [facility]. Complicated. The patient reports bilateral flank pain prior to admission which rises concern for possible pyelonephritis. Urinalysis 07/18/18 contaminated. Culture was negative. Previous cultures at [facility] grew E. coli both times. Failed outpatient oral antibiotics. Clinically improved on IV Rocephin. Continue Rocephin 1 gram IV daily. Duration of treatment depends on the clinical picture. Can likely transition to PO Keflex 500mg PO QID to complete a total of 14 days of treatment. Monitor renal function and dose-adjust antibiotics. Qualifiers: Urinary tract infection type: site unspecified Hematuria presence: without hematuria Qualified Code(s): N39.0 - Urinary tract infection, site not specified (4) Hypercoagulable state Status: Acute Assessment and plan: Etiology unclear. INR 10.7 on admission. Resolved. Management per the primary team. (5) CAD (coronary artery disease) Status: Chronic Qualifiers: Coronary Disease-Associated Artery/Lesion type: unspecified vessel or lesion type [place] vs. transplanted heart: [place] heart Associated angina: without angina Qualified Code(s): I25.10 - Atherosclerotic heart disease of [place] coronary artery without angina pectoris (6) Diabetes mellitus Status: Chronic Assessment and plan: Recommend aggressive glucose monitoring and control. Management per the primary team. Qualifiers: Diabetes mellitus type: type 2 Diabetes mellitus regional intermodal truck driver insulin use: with regional intermodal truck driver use Diabetes mellitus complication status: with unspecified complications Qualified Code(s): E11.8 - Type 2 diabetes mellitus with unspecified complications; Z79.4 - shelter (current) use of insulin (7) Hypertension Status: Chronic Qualifiers: Hypertension type: unspecified Qualified Code(s): I10 - Essential (primary ) hypertension (8) Cough Status: Acute Assessment and plan: Persistent dry, hacky cough. CXR 07/18/18 showed bibasilar opacities, likely atelectasis. Consider repeating CXR. Infectious Disease HPI - Data of Consult Patient: new to practice Consult date: 07/23/18 Requesting Physician: Edmond Garay MD Primary Care Provider: Wiliam Rangel - Consult Narrative Reason for consult: Bacteremia History of present illness: Ms. Cleaning is a 77 year old female with a past medical history of CAD, diabetes, hypertension, chronic kidney disease, DVT, hyperlipidemia, and hypothyroidism. The patient was admitted to the hospital July 18 for urinary tract infection. We are consulted July 23 for further recommendations for bacteremia. Briefly, the patient is a 77-year-old female with past medical history as stated above. The patient tells me that about 6 weeks ago she began to experience symptoms consistent with urinary tract infection including dysuria and urinary frequency. She was seen by her primary care provider and placed on a 10 day course of oral Levaquin. She tells me that her symptoms mildly improved, but never completely resolved. About 2 weeks after completing the course of Levaquin, she saw her primary care provider again and was placed on a 2 week course of nitrofurantoin. She tells me that she really never got any better and went to a local ER several times, never got any answers and never really got any better. She presented to the ER on the day of admission. Upon arrival, the patient was afebrile hemodynamically stable. Her white blood cell count was mildly elevated at 11.7 thousand. Her serum creatinine was 1.12. LFTs were normal. Troponin was negative. Her INR was markedly elevated at 10.7. Urinalysis was positive for large amounts of leukocyte esterase, but appeared contaminated with many epithelial cells and no bacteria. A urine culture was sent and came back negative. She had a chest x-ray that showed probable small right pleural effusion with bibasilar opacities, likely reflecting atelectasis given the low lung volumes. Blood cultures were obtained 2 sets. The patient was started empirically on IV Rocephin and was admitted to the hospital for further evaluation. Since admission, the patient's white blood cell count has normalized. She has remained afebrile. Blood cultures obtained in the emergency department came back +1 out of 2 sets for staph epi. A repeat set of blood cultures on 07/20/18 also came back +1 out of 2 sets for staph hominis. Currently, the patient is on IV Rocephin and vancomycin. We have been asked to evaluate and make further recommendations. During my exam today, the patient endorses a history as stated above. Her daughter is also at the bedside who provides some history. She reports that prior to admission she was having fevers of 101 with chills and rigors. She denied any headache or neck pain, but did report some intermittent confusion and generalized weakness. She denied any shortness of breath, but reports a chronic dry cough. She denies any nausea or vomiting or diarrhea. She reported urinary frequency, dysuria, and poor urine stream. She reports she was eating and drinking without a problem, but just wanted to sleep all the time. She denies any abdominal pain, but did endorse a history of bilateral flank pain. She denies any vaginal bleeding or discharge. She denies any oral thrush or any skin lesions. At this time, the patient said her symptoms have markedly improved. She states she feels a knot about 90% better and wants to go home. The patient lives with at home with her . She denies any tobacco, alcohol, or illicit drug use. She does not work outside the home. She denies any chronic infectious diseases. Review of urine culture results from [facility] grew out duncan-sensitive E. coli on 05/27/18 and 07/07/18. CC: Edmond Garay MD Past Med Surg Social Fam HX - Past Medical History Attestation: Yes The following information was validated with the patient. Source: patient, old records reviewed, nursing notes reviewed Medical history: coronary artery disease (Cardiac stents x 2), diabetes, hypertension - Past Surgical History Additional surgical history: PCI - Social History Smoking Status: Never smoker Smokeless Tobacco Status: No Alcohol use: none Drug use: none Occupational status: unemployed Current living situation: Home, With Family Activity Level: Uses cane/walker Recent Out of Country Travel Within the Last 8 Weeks: No Exposure or Possible Exposure to Illness During Travel: No - Family History Mother History Unknown: Yes Father History Unknown: Yes Infectious Disease-CN:Meds Atorvastatin Calcium [Lipitor] 20 mg PO QPM 07/18/18 [History] Gabapentin [Neurontin] 300 mg PO BID 07/18/18 [History] Insulin ASPART [NovoLOG] 5 unit SQ TID 07/18/18 [History] Insulin Glargine [Lantus] 45 unit SQ HS 07/18/18 [History] Levothyroxine [Synthroid] 100 mcg PO QAM 07/18/18 [History] Metformin HCl 1,000 mg PO BID 07/18/18 [History] Nitrofurantoin Monohyd/M-Cryst [Macrobid 100 mg Capsule] 100 mg PO BID 07/18/18 [History] Spironolactone [Aldactone] 25 mg PO DAILY 07/18/18 [History] Warfarin Sodium 7.5 mg PO DAILY 07/18/18 [History] 3 Allergy/AdvReac Type Severity Reaction Status Date / Time sulfamethoxazole Allergy Shakiness Verified 07/18/18 12:33 [From Bactrim] trimethoprim [From Bactrim] Allergy Shakiness Verified 07/18/18 12:33 All systems: reviewed and no additional remarkable complaints except as stated Exam - Constitutional Vitals: Temp Pulse Resp BP Pulse Ox 98.5 F 56 14 122/70 94 07/23/18 13:58 07/23/18 13:58 07/23/18 13:58 07/23/18 13:58 07/23/18 13:58 Infectious Disease CN: Results - Labs CBC & Chem 7: 07/23/18 07:11 07/23/18 07:11 Cultures: Cultures 07/20/18 06:57 Blood Culture - Final Peripheral Venipuncture Staphyloco hominis ssp hominis 07/20/18 06:57 Blood Culture - Preliminary Peripheral Venipuncture Culture is incubating and being continuously monitored for growth. Final report to follow. Serology: Serology 07/20/18 Range/Units 06:57 A. baumannii (PCR) Not Detected (Not Detect) Angeline albicans (PCR) Not Detected (Not Detect) C. glabrata (PCR) Not Detected (Not Detect) C. krusei (PCR) Not Detected (Not Detect) C. parapsilosis (PCR) Not Detected (Not Detect) C. tropicalis (PCR) Not Detected (Not Detect) Enterobacteriac sp PCR Not Detected (Not Detect) E. cloacae complex PCR Not Detected (Not Detect) Enterococcus sp PCR Not Detected (Not Detect) E. coli (PCR) Not Detected (Not Detect) H. influenzae (PCR) Not Detected (Not Detect) Klebsiella oxytoca PCR Not Detected (Not Detect) Klebsiella pneumoniae Not Detected (Not Detect) List. monocytogenes PCR Not Detected (Not Detect) N. meningitidis (PCR) Not Detected (Not Detect) Proteus species (PCR) Not Detected (Not Detect) Serratia marcescens PCR Not Detected (Not Detect) Staphylococcus sp PCR DETECTED A (Not Detect) Staph aureus (PCR) Not Detected (Not Detect) mecA-Methicil Res Gene Not Detected (Not Detect) Streptococcus sp PCR Not Detected (Not Detect) Group A Strep DNA Not Detected (Not Detect) Group B Strep (PCR) Not Detected (Not Detect) Strep pneumoniae (PCR) Not Detected (Not Detect) P. aeruginosa (PCR) Not Detected (Not Detect) Deborah/B-Vanco Res Genes N/A (Not Detect) KPC (blaKPC) Detect PCR N/A (Not Detect) Consult Discharge Plan - Plan Referrals: Wiliam Rangel, [Primary Care Provider] - - Attending Attestation I examined this patient and my medical decision-making was reviewed with the Resident Physician. I agree with the documented findings, disposition and treatment plan as described except to the extent set forth below. This is an addendum to original report dictated by Cathy Leija CNP. Please refer to Walter tavares for full detail. Patient is 77-year-old woman with past medical history mentioned below including coronary artery disease, diabetes and chronic kidney disease apparently has been having UTI as an outpatient and failed oral antibiotic therapy. Patient apparently was symptomatic was 6 weeks prior to admission with UTI symptoms including dysuria and urinary frequency. She might evaluated by her PCP and given 10 day course of levofloxacin. Her symptoms mildly improved but not completely. Patient was given another course of nitrofurantoin for 2 weeks. Apparently her symptoms did not improve. Patient on admission has been afebrile and the only SIRS criteria was mildly elevated WBC count. Had a urinalysis which showed pyuria but urine culture was no growth. Patient also blood cultures 1 out of 2 sets was positive for coag-negative staph on 07/18. Repeat culture was also +1 out of 2 sets for coag-negative staph on 07/20. Patient was started on Rocephin we were asked to evaluate the patients make further recommendations. Cultures from [facility] were obtained and the records show that the patient had Escherichia coli that was pansensitive. Assessment and plan: Bacteremia with coag negative staph 1 out of 2 sets likely contaminant. No further treatment or repeat cultures are recommended. Questionable UTI versus urinary symptoms. Patient was treated twice appropriately as an outpatient for 2 weeks at a time with levofloxacin 2 weeks followed by nitrofurantoin trying for 2 weeks. Patients urine culture on admission on 07/18 revealed no bacteria. Patient has been on Rocephin since. She states that she clinicallys feeling better but I am not sure what is going on. An ultrasound of the kidneys and bladder revealed no abnormalities. Consider getting a CT abdomen and pelvis with contrast. Might consider urology consult. Discontinue Rocephin in the meantime. Duration of treatment probably 10 days total. We switched to oral antibiotics once clinically stable.
--- NOTE | 2018-07-23 15:42 | Internal Med Progress Note ---
Hospitalist Progress Note - Encounter Date of Encounter: 07/23/18 Time of Encounter: 12:00 - Subjective Interval History: No acute events overnight. No fever/chills, N/V, dysuria, or flank pain. - Exam Vitals: Temp Pulse Resp BP Pulse Ox 98.5 F 56 14 122/70 94 07/23/18 13:58 07/23/18 13:58 07/23/18 13:58 07/23/18 13:58 07/23/18 13:58 Exam: General: Alert and oriented x 3 Cardiovascular:Normal S1 & S2, No JVD. Pulse regular. Lungs: clear to auscultation, no wheezes/rales Abdomen:Soft, non-tender, no rigidity. No CVA tenderness Neurological:Normal cognition and motor skills. Non-focal - Assessment and Plan (1) UTI (urinary tract infection) Current Visit: Yes Status: Acute Assessment and Plan: Presented with UTI failed outpatient therapy, concerning for complicated UTI. Was tried on Levaquin and nitrofurantoin as an outpatient without clinical improvement lactic acid normal, US retroperitoneum unremarkable urine culture -ve Improving on IV Rocephin, D6 today, aim 7 days in total 1 set of Blood c/s on 07/18 came out +ve for for S. epidermidis -> suspected contamination However, confusingly, repeat c/s on 07/20 is also growing GPC in 1 set -> S. hominis ?significance Will get ID's input regarding 2 separate cultures growing 2 different staph PT/OT recommended SNF placement, SW consult to discuss with family on discharge planning (2) ENRIQUE (acute kidney injury) Current Visit: Yes Status: Acute Assessment and Plan: Creatinine improved on IVF and now eating well Ultrasound finding as above (3) CAD (coronary artery disease) Current Visit: Yes Status: Chronic Assessment and Plan: Does not seem to be on aspirin or beta angelina as an outpatient We will continue statin bb started for HTN as below (4) Diabetes mellitus Current Visit: Yes Status: Chronic Assessment and Plan: On Lantus 40 units and lispro 5 units 3 times a day with meals in addition to metformin 1g BID will hold off on OHGA and decrease levemir to 35U in view of borderline low blood glucose this AM continue LDSS (5) Hypertension Current Visit: Yes Status: Chronic Assessment and Plan: started to become hypertensive, was on aldactone at home which is on hold given her history of CAD, would benefit from bb coreg 6.25mg BID (6) Physical deconditioning Current Visit: Yes Status: Acute Assessment and Plan: PT/OT recommended SNIF placement, social work consult to discuss the discharge planning with family. (7) DVT (deep venous thrombosis) Current Visit: No Status: Acute Assessment and Plan: Prior history of DVT on Coumadin. Had supratherapeutic INR of 10.7 initially for which she was given 1 dose of Vit K INR 1.8 today coumadin dosing per pharmacy - Time Spent with Patient Total time spent is greater than 50% in coordination of care (as documented) at patient's floor/unit and/or counseling patient: Plan of Care Discussed with: nurse Internal Medicine: Result - Labs CBC & Chem 7: 07/23/18 07:11 07/23/18 07:11 Labs: Short CBC 07/23/18 Range/Units 07:11 WBC 7.1 (4.3-11.1) K/mcL Hgb 11.0 L (11.5-15.4) g/dL Hct 33.4 L (35.3-44.9) % Plt Count 228 (140-400) K/mcL Neutrophils # 4.2 (1.6-8.9) K/mcL BMP 07/23/18 07:11 Sodium 141 Potassium 4.3 Chloride 105 Carbon Dioxide 33 H BUN 13 Creatinine 0.76 Glucose 85 Calcium 10.0 - ABG Interpretation ABG results: PT/INR, D-dimer PT 20.3 Seconds (9.4-12.1) H 07/23/18 07:11 Consult Discharge Plan - Plan Referrals: Wiliam Rangel, [Primary Care Provider] - (1) UTI (urinary tract infection) Qualifiers: Urinary tract infection type: site unspecified Hematuria presence: without hematuria Qualified Code(s): N39.0 - Urinary tract infection, site not specified (3) CAD (coronary artery disease) Qualifiers: Coronary Disease-Associated Artery/Lesion type: unspecified vessel or lesion type [place] vs. transplanted heart: [place] heart Associated angina: without angina Qualified Code(s): I25.10 - Atherosclerotic heart disease of [place] coronary artery without angina pectoris (4) Diabetes mellitus Qualifiers: Diabetes mellitus type: type 2 Diabetes mellitus regional intermodal truck driver insulin use: with regional intermodal truck driver use Diabetes mellitus complication status: with unspecified complications Qualified Code(s): E11.8 - Type 2 diabetes mellitus with unspecified complications; Z79.4 - [facility] (current) use of insulin (5) Hypertension Qualifiers: Hypertension type: unspecified Qualified Code(s): I10 - Essential (primary) hypertension (7) DVT (deep venous thrombosis) Qualifiers: DVT location: lower extremity Affected thrombotic vein of extremity: unspecified vein of extremity Chronicity: unspecified Laterality: unspecified laterality Qualified Code(s): I82.409 - Acute embolism and thrombosis of unspecified deep veins of unspecified lower extremity
[2018-07-23] MEDS ORDERED: *HR* Warfarin 7.5 MG TABLET PO ONE (18:00)
[2018-07-23] MEDS: cefTRIAXone 1,000 MG in Water for inj. (sterile) 20 ML 10 ML IVP SCH (18:13)
[2018-07-23] MEDS: Insulin DETEMIR 100 UNIT/ML X5UNITS SQ SCH (22:14)
[2018-07-24 01:15] LABS: INR 1.7; Prothrombin Time 19.1 Seconds (9.4-12.1)
[2018-07-24] MEDS: Gabapentin 300 MG CAPSULE PO SCH ×2 (08:43→21:29)
[2018-07-24] MEDS: Insulin LISPRO 300 UNITS/3 ML VIAL SQ SCH ×7 (08:43→21:29)
--- NOTE | 2018-07-24 14:00 | Infectious Disease Progress No ---
Date of Encounter: 07/24/18 Time of Encounter: 09:50 - Assessment and Plan (1) Sepsis Current Visit: Yes Status: Acute The patient had two SIRS criteria including leukocytosis and fevers at home. Etiology unclear. The patient had UTI symptoms on admission, but her urine was negative. She does have a dry cough, so consider pneumonia vs. other intra- abdominal source. Improved. WBC has normalized. She has been afebrile since admission. Blood cultures drawn 07/18/18 were positive 1/2 sets for S. epi. Repeat blood cultures 07/20/18 were positive 1/2 sets for S. hominis. Qualifiers: Sepsis type: sepsis due to unspecified organism Qualified Code(s): A41.9 - Sepsis, unspecified organism (2) Bacteremia Current Visit: Yes Status: Acute Causative organism: S. epi and S. hominis. Blood cultures drawn 07/18/18 were positive 1/2 sets for S. epi. Repeat blood cultures drawn 07/20/18 were positive 1/2 sets for S. hominis. Given the clinical picture, likely a contaminant. Repeat blood cultures x 2 sets now. Continue to observe off Vancomycin. (3) UTI (urinary tract infection) Current Visit: Yes Status: Suspected The patient had urinary symptoms including dysuria, frequency, and bilateral flank pain on admission. Causative organism unclear, but likely E. coli based on the previous urine cultures from [facility]. Complicated. The patient reports bilateral flank pain prior to admission which rises concern for possible pyelonephritis, although the patient's urinalysis and culture are negative. Urinalysis 07/18/18 contaminated. Culture was negative. Previous cultures at [facility] grew E. coli both times. Failed outpatient oral antibiotics. May need to consider other source of the patient's sepsis. Recommend CT of the abdomen and pelvis to evaluate. Clinically improved on IV Rocephin. Continue Rocephin 1 gram IV daily. Duration of treatment depends on the clinical picture. Can likely transition to PO Keflex 500mg PO QID to complete a total of 14 days of treatment. Monitor renal function and dose-adjust antibiotics. Qualifiers: Urinary tract infection type: site unspecified Hematuria presence: without hematuria Qualified Code(s): N39.0 - Urinary tract infection, site not specified (4) Hypercoagulable state Current Visit: Yes Status: Acute Etiology unclear. INR 10.7 on admission. Resolved. Management per the primary team. (5) CAD (coronary artery disease) Current Visit: Yes Status: Chronic Qualifiers: Coronary Disease-Associated Artery/Lesion type: unspecified vessel or lesion type [place] vs. transplanted heart: [place] heart Associated angina: without angina Qualified Code(s): I25.10 - Atherosclerotic heart disease of [place] coronary artery without angina pectoris (6) Diabetes mellitus Current Visit: Yes Status: Chronic Recommend aggressive glucose monitoring and control. Management per the primary team. Qualifiers: Diabetes mellitus type: type 2 Diabetes mellitus correction insulin use: with manager long term care use Diabetes mellitus complication status: with unspecified complications Qualified Code(s): E11.8 - Type 2 diabetes mellitus with unspecified complications; Z79.4 - group home (current) use of insulin (7) Hypertension Current Visit: Yes Status: Chronic Qualifiers: Hypertension type: unspecified Qualified Code(s): I10 - Essential (primary ) hypertension (8) Cough Current Visit: Yes Status: Acute Persistent dry, hacky cough. CXR 07/18/18 showed bibasilar opacities, likely atelectasis. Get CT chest to evaluate. - Subjective Interval history: Patient seen and examined. No acute events noted overnight. Patient sitting up in the chair. States overall she feels 100% better. Denies fevers, chills, or rigors. Denies chest pain or shortness of breath, but reports a chronic, non- productive hacky cough. Denies nausea, vomiting, or diarrhea. Denies abdominal pain, urinary complaints, or appetite changes. Denies oral thrush or new skin lesions. States dysuria and urinary frequency and flank pain have resolved. Infect Dis PN-Objective Data - Labs CBC & Chem 7: 07/23/18 07:11 07/23/18 07:11 Labs: Laboratory Results - last 24 hr 07/23/18 07/23/18 07/23/18 11:09 16:24 21:02 PT INR POC Glucose 257 H 190 H 207 H Vancomycin Trough 07/24/18 07/24/18 07/24/18 00:31 00:31 08:01 PT 19.1 H INR 1.7 POC Glucose 158 H Vancomycin Trough 14 H 07/24/18 10:49 PT INR POC Glucose 270 H Vancomycin Trough Cultures: Cultures 07/20/18 06:57 Blood Culture - Final Peripheral Venipuncture Staphyloco hominis ssp hominis 07/20/18 06:57 Blood Culture - Preliminary Peripheral Venipuncture Culture is incubating and being continuously monitored for growth. Final report to follow. Serology 07/20/18 Range/Units 06:57 A. baumannii (PCR) Not Detected (Not Detect) Angeline albicans (PCR) Not Detected (Not Detect) C. glabrata (PCR) Not Detected (Not Detect) C. krusei (PCR) Not Detected (Not Detect) C. parapsilosis (PCR) Not Detected (Not Detect) C. tropicalis (PCR) Not Detected (Not Detect) Enterobacteriac sp PCR Not Detected (Not Detect) E. cloacae complex PCR Not Detected (Not Detect) Enterococcus sp PCR Not Detected (Not Detect) E. coli (PCR) Not Detected (Not Detect) H. influenzae (PCR) Not Detected (Not Detect) Klebsiella oxytoca PCR Not Detected (Not Detect) Klebsiella pneumoniae Not Detected (Not Detect) List. monocytogenes PCR Not Detected (Not Detect) N. meningitidis (PCR) Not Detected (Not Detect) Proteus species (PCR) Not Detected (Not Detect) Serratia marcescens PCR Not Detected (Not Detect) Staphylococcus sp PCR DETECTED A (Not Detect) Staph aureus (PCR) Not Detected (Not Detect) mecA-Methicil Res Gene Not Detected (Not Detect) Streptococcus sp PCR Not Detected (Not Detect) Group A Strep DNA Not Detected (Not Detect) Group B Strep (PCR) Not Detected (Not Detect) Strep pneumoniae (PCR) Not Detected (Not Detect) P. aeruginosa (PCR) Not Detected (Not Detect) Deborah/B-Vanco Res Genes N/A (Not Detect) KPC (blaKPC) Detect PCR N/A (Not Detect) Exam - Constitutional Vitals: Temp Pulse Resp BP Pulse Ox 98.3 F 81 16 121/63 92 07/24/18 10:03 07/24/18 10:03 07/24/18 10:03 07/24/18 10:03 07/24/18 10:03 General appearance: cooperative, no acute distress, obese - Head Head exam: Present: atraumatic, normal inspection, normocephalic - Eye Eye exam: Present: EOMI, normal appearance, PERRL Pupils: Present: normal accommodation - ENT ENT exam: Present: mucous membranes moist - Neck Neck exam: Present: normal inspection - Respiratory Respiratory exam: Present: CTAB. Absent: rales, respiratory distress, rhonchi, wheezes - Cardiovascular Cardiovascular exam: Present: RRR, +S1, +S2 - GI/Abdominal GI/Abdominal exam: Present: distended (obese), normal bowel sounds, soft. Absent: tenderness - Extremities Exam Extremities exam: Present: pedal edema (Trace BLE). Absent: joint swelling, tenderness - Neurological Exam Neurological exam: Present: alert, oriented X3, no focal deficits - Psychiatric Psychiatric exam: Present: normal affect, normal mood - Skin Skin exam: Present: dry, intact, normal color, warm Consult Discharge Plan - Plan Referrals: Wiliam Rangel DO [Primary Care Provider] - - Attending Attestation I examined this patient and my medical decision-making was reviewed with the Resident Physician. I agree with the documented findings, disposition and treatment plan as described except to the extent set forth below.
--- NOTE | 2018-07-24 14:18 | Internal Med Progress Note ---
Hospitalist Progress Note - Encounter Date of Encounter: 07/24/18 Time of Encounter: 10:00 - Subjective Interval History: No acute events overnight. No fever/chills, N/V, dysuria, or flank pain. Has mild non-productive cough. - Exam Vitals: Temp Pulse Resp BP Pulse Ox 98.3 F 81 16 121/63 92 07/24/18 10:03 07/24/18 10:03 07/24/18 10:03 07/24/18 10:03 07/24/18 10:03 Exam: General: Alert and oriented x 3 Cardiovascular:Normal S1 & S2, No JVD. Pulse regular. Lungs: clear to auscultation, no wheezes/rales Abdomen:Soft, non-tender, no rigidity. No CVA tenderness Neurological:Normal cognition and motor skills. Non-focal - Assessment and Plan (1) UTI (urinary tract infection) Current Visit: Yes Status: Suspected Assessment and Plan: Presented with UTI failed outpatient therapy, concerning for complicated UTI. Was tried on Levaquin and nitrofurantoin as an outpatient without clinical improvement lactic acid normal, US retroperitoneum unremarkable urine culture -ve Improving on IV Rocephin, D7 today. Switch to Keflex 500mg QID from tomorrow for the rest of 7 days 1 set of Blood c/s on 07/18 came out +ve for for S. epidermidis -> suspected contamination However, confusingly, repeat c/s on 07/20 is also growing GPC in 1 set -> S. hominis ?significance ID's input appreciated, plan for CT T/A/P PT/OT recommended SNF placement, waiting for prior auth (2) Gram-positive bacteremia Current Visit: Yes Status: Acute Assessment and Plan: as above, likely a contaminant but will repeat blood culture and CT T/A/P (3) ENRIQUE (acute kidney injury) Current Visit: Yes Status: Acute Assessment and Plan: Creatinine improved on IVF and now eating well Ultrasound finding as above (4) CAD (coronary artery disease) Current Visit: Yes Status: Chronic Assessment and Plan: Does not seem to be on aspirin or beta angelina as an outpatient We will continue statin bb started for HTN as below (5) Diabetes mellitus Current Visit: Yes Status: Chronic Assessment and Plan: On Lantus 40 units and lispro 5 units 3 times a day with meals in addition to metformin 1g BID will hold off on OHGA and decrease levemir to 35U in view of borderline low blood glucose this AM continue LDSS (6) Hypertension Current Visit: Yes Status: Chronic Assessment and Plan: started to become hypertensive, was on aldactone at home which is on hold given her history of CAD, would benefit from bb coreg 6.25mg BID (7) Physical deconditioning Current Visit: Yes Status: Acute Assessment and Plan: PT/OT recommended SNIF placement, social work consult to discuss the discharge planning with family. (8) DVT (deep venous thrombosis) Current Visit: No Status: Acute Assessment and Plan: Prior history of DVT on Coumadin. Had supratherapeutic INR of 10.7 initially for which she was given 1 dose of Vit K INR 1.7 today coumadin dosing per pharmacy - Time Spent with Patient Total time spent is greater than 50% in coordination of care (as documented) at patient's floor/unit and/or counseling patient: Internal Medicine: Result - Labs CBC & Chem 7: 07/23/18 07:11 07/23/18 07:11 - ABG Interpretation ABG results: PT/INR, D-dimer PT 19.1 Seconds (9.4-12.1) H 07/24/18 00:31 Consult Discharge Plan - Plan Referrals: Wiliam Rangel, [Primary Care Provider] - (1) UTI (urinary tract infection) Qualifiers: Urinary tract infection type: site unspecified Hematuria presence: without hematuria Qualified Code(s): N39.0 - Urinary tract infection, site not specified (4) CAD (coronary artery disease) Qualifiers: Coronary Disease-Associated Artery/Lesion type: unspecified vessel or lesion type [place] vs. transplanted heart: [place] heart Associated angina: without angina Qualified Code(s): I25.10 - Atherosclerotic heart disease of [place] coronary artery without angina pectoris (5) Diabetes mellitus Qualifiers: Diabetes mellitus type: type 2 Diabetes mellitus parts counterman insulin use: with custodial use Diabetes mellitus complication status: with unspecified complications Qualified Code(s): E11.8 - Type 2 diabetes mellitus with unspecified complications; Z79.4 - roasterman (current) use of insulin (6) Hypertension Qualifiers: Hypertension type: unspecified Qualified Code(s): I10 - Essential (primary) hypertension (8) DVT (deep venous thrombosis) Qualifiers: DVT location: lower extremity Affected thrombotic vein of extremity: unspecified vein of extremity Chronicity: unspecified Laterality: unspecified laterality Qualified Code(s): I82.409 - Acute embolism and thrombosis of unspecified deep veins of unspecified lower extremity
[2018-07-24] MEDS: cefTRIAXone 1,000 MG in Water for inj. (sterile) 20 ML 10 ML IVP SCH (17:59)
[2018-07-24] MEDS ORDERED: *HR* Warfarin 4 MG TABLET PO ONE (18:00)
[2018-07-24] MEDS: Insulin DETEMIR 100 UNIT/ML X5UNITS SQ SCH (21:29)
[2018-07-25 03:36] LABS: Basophils % 0.7 %; Eosinophils # 0.2 K/mcL (0.0-0.6); Eosinophils % 2.9 %; Hematocrit 32.8 % (35.3-44.9); Hemoglobin 10.6 g/dL (11.5-15.4); Immature Granulocytes % 0.5 % (0-4); Lymphocytes # 1.9 K/mcL (0.6-4.6); Lymphocytes % 30.4 %; Mean Corpuscular HGB Conc 32.3 g/dL (31.6-35.5); Mean Corpuscular Hemoglobin 29.8 pg (28.0-33.3); Mean Corpuscular Volume 92.1 fL (83.0-100.0); Mean Platelet Volume 10.8 fL (9.4-12.4); Monocytes # 0.5 K/mcL (0.0-1.3); Monocytes % 8.8 %; Neutrophils # 3.5 K/mcL (1.6-8.9); Platelet Count 251 K/mcL (140-400); Red Blood Count 3.56 M/mcL (3.82-4.97); Segmented Neutrophils % 56.7 %
[2018-07-25 03:41] LABS: INR 1.7; Prothrombin Time 19.1 Seconds (9.4-12.1)
[2018-07-25 03:51] LABS: BUN/Creatinine Ratio 21 (6-26); Blood Urea Nitrogen 17 mg/dL (8-23); Calcium 9.8 mg/dL (8.6-10.3); Carbon Dioxide 32 mEq/L (23-29); Chloride 103 mEq/L (98-107); Glucose 179 mg/dL (70-105); Magnesium 1.6 mg/dL (1.6-2.6); Osmolality,Calculated 294 (280-300); Potassium 4.2 mEq/L (3.5-5.1); Sodium 139 mEq/L (136-145); eGFR For Non-African Americans > 60 (> 60)
[2018-07-25] MEDS: Insulin LISPRO 300 UNITS/3 ML VIAL SQ SCH ×7 (08:07→20:33)
[2018-07-25] MEDS: Gabapentin 300 MG CAPSULE PO SCH ×2 (08:42→20:33)
[2018-07-25] MEDS: cephALEXin 500 MG CAPSULE PO SCH ×2 (08:42→12:30)
--- NOTE | 2018-07-25 11:16 | Pulmonology Consult Note ---
<Jaz Warren - Last Filed: 07/25/18 14:36> Date of Encounter: 07/25/18 Time of Encounter: 11:40 Assessment and Plan (1) Cough Current Visit: Yes Status: Acute Cough developed since admission to the hospital, CT scan shows ground glass opacities running along vasculature concerning for atypical pneumonia. Start azithromycin, 500mg today, 250mg daily for the next four days. Do a follow-up chest xray in 6 weeks. History of Present Illness Consult date: 07/25/18 Requesting physician: Edmond Garay Reason for consult: COPD, abnormal CXR/CT Chief complaint: cough History of present illness: Pt is a 77 year old female that was admitted 7 days ago for bacteremia complicating UTI. She notes a cough started at some point during her admission, although she cannot say for certain whether it was this admission or previous admissions. She is a former smoker that quit 57 years ago and has no second hand smoke exposure in her home after that. No recent travel, no other URI symptoms including fevers, runny nose, sore throat, or sneezing. Her cough is non-productive in nature, continues throughout the day and night, and is unaffected by her position - upright/supine, she is able to eventually sleep and feels that she rests ok. She has no hx of COPD and does not have any inhalers for home use. She reports one incident of SOB in the hospital a few nights ago where she felt that she could not catch her breath and had to be placed on oxygen. This is an isolated incident and has not happened since. Of note, she is on BiPAP at home because she was "having trouble catching her breath" while sleeping, so her PCP Dr Wharton prescribed this for her. She does not believe she is on supplemental oxygen with the BiPAP, just "pressure". She denies chest pain, hx of cancer, CHF, or cardiac history. Past Med Surg Social Fam HX - Past Medical History Medical history: coronary artery disease (Cardiac stents x 2), diabetes, hypertension - Past Surgical History Additional surgical history: PCI - Social History Smoking Status: Never smoker Smokeless Tobacco Status: No Alcohol use: none Drug use: none - Family History Mother History Unknown: Yes Father History Unknown: Yes Medications and Allergies Atorvastatin Calcium [Lipitor] 20 mg PO QPM 07/18/18 [History] Gabapentin [Neurontin] 300 mg PO BID 07/18/18 [History] Insulin ASPART [NovoLOG] 5 unit SQ TID 07/18/18 [History] Insulin Glargine [Lantus] 45 unit SQ HS 07/18/18 [History] Levothyroxine [Synthroid] 100 mcg PO QAM 07/18/18 [History] Metformin HCl 1,000 mg PO BID 07/18/18 [History] Nitrofurantoin Monohyd/M-Cryst [Macrobid 100 mg Capsule] 100 mg PO BID 07/18/18 [History] Spironolactone [Aldactone] 25 mg PO DAILY 07/18/18 [History] Warfarin Sodium 7.5 mg PO DAILY 07/18/18 [History] 3 Allergy/AdvReac Type Severity Reaction Status Date / Time sulfamethoxazole Allergy Shakiness Verified 07/18/18 12:33 [From Bactrim] trimethoprim [From Bactrim] Allergy Shakiness Verified 07/18/18 12:33 All Systems: The remainder of the systems were reviewed and are negative - Constitutional Constitutional: no fatigue, no fever(s) - EENT Nose, mouth and throat: no epistaxis, no nasal congestion, no nasal discharge, no post-nasal drip, no sore throat - Cardiovascular Cardiovascular: edema ([place] lymphedema since a fall a few years ago), no chest pain - Respiratory Respiratory: cough, dyspnea (one episode a few nights ago and was placed on supplemental oxygen), no wheezing - Musculoskeletal Musculoskeletal: back pain Physical Examination Vital Signs: Vital Signs, Last 4 Hours Temp Pulse Resp BP Pulse Ox 07/25/18 10:17 98.4 F 98 16 150/70 94 General appearance: no acute distress, alert Eyes: nonicteric ENT: oropharynx moist Effort: normal Inspection: kyphosis Auscultation: left: clear, right: wheezes (inconsisitent fine wheezes in RLL) Percussion: bilateral: not dull Tactile fremitus: bilateral: normal Cardiovascular: regular rate and rhythm Gastrointestinal: soft, non-tender Extremities: edema (2+ [place] LE edema) normal mental status mood appropriate, affect normal Results - Laboratory Findings CBC and BMP: 07/25/18 02:39 07/25/18 02:39 PT/INR, D-dimer PT 19.1 Seconds (9.4-12.1) H 07/25/18 02:39 Abnormal lab findings: Abnormal lab results RBC 3.56 M/mcL (3.82-4.97) L 07/25/18 02:39 Hgb 10.6 g/dL (11.5-15.4) L 07/25/18 02:39 Hct 32.8 % (35.3-44.9) L 07/25/18 02:39 RDW 16.0 % (11.5-14.5) H 07/25/18 02:39 Nucleated RBCs/100 WBC 0.3 /100 WBC (0) H 07/18/18 12:39 PT 19.1 Seconds (9.4-12.1) H 07/25/18 02:39 Carbon Dioxide 32 mEq/L (23-29) H 07/25/18 02:39 Glucose 179 mg/dL (70-105) H 07/25/18 02:39 AST 12 Units/L (13-39) L 07/18/18 12:39 Serum Total Protein 5.8 g/dL (6.4-8.9) L 07/18/18 12:39 Albumin 2.8 g/dL (3.5-5.7) L 07/18/18 12:39 Albumin/Globulin Ratio 0.9 (1.1-2.2) L 07/18/18 12:39 Urine Glucose (UA) 100 mg/dL (Normal) H 07/18/18 13:50 Ur Leukocyte Esterase Large (Negative) H 07/18/18 13:50 Urine Microscopic WBC 50-100 per hpf (0-3) H 07/18/18 13:50 Ur Squamous Epith Cells Many per lpf (None-Few) H 07/18/18 13:50 Ur Culture Indicated? NO. (NO) A 07/18/18 13:50 Vancomycin Trough 14 mcg/mL (5-10) H 07/24/18 00:31 Staphylococcus sp PCR DETECTED (Not Detect) A 07/20/18 06:57 - Microbiology Findings Microbiology Findings: Microbiology, Last 48 Hours 07/24/18 14:23 Blood Culture - Preliminary Peripheral Venipuncture Culture is incubating and being continuously monitored for growth. Final report to follow. 07/24/18 14:23 Blood Culture - Preliminary Peripheral Venipuncture Culture is incubating and being continuously monitored for growth. Final report to follow. 07/20/18 06:57 Blood Culture - Final Peripheral Venipuncture Staphyloco hominis ssp hominis - Clinical Findings Intake & Output: Intake & Output 07/24/18 07/25/18 07/25/18 23:59 07:59 15:59 Intake Total 480 / 480 360 / 360 Output Total 100 / 100 0 / 0 Balance 380 / 380 360 / 360 Consult Discharge Plan - Plan Referrals: Wiliam Rangel DO [Primary Care Provider] - <Jessie Giles - Last Filed: 07/25/18 15:39> Date of Encounter: 07/25/18 All Systems: The remainder of the systems were reviewed and are negative Results - Laboratory Findings CBC and BMP: 07/25/18 02:39 07/25/18 02:39 PT/INR, D-dimer PT 19.1 Seconds (9.4-12.1) H 07/25/18 02:39 Abnormal lab findings: Abnormal lab results RBC 3.56 M/mcL (3.82-4.97) L 07/25/18 02:39 Hgb 10.6 g/dL (11.5-15.4) L 07/25/18 02:39 Hct 32.8 % (35.3-44.9) L 07/25/18 02:39 RDW 16.0 % (11.5-14.5) H 07/25/18 02:39 Nucleated RBCs/100 WBC 0.3 /100 WBC (0) H 07/18/18 12:39 PT 19.1 Seconds (9.4-12.1) H 07/25/18 02:39 Carbon Dioxide 32 mEq/L (23-29) H 07/25/18 02:39 Glucose 179 mg/dL (70-105) H 07/25/18 02:39 POC Glucose 188 mg/dL (70-99) H 07/25/18 10:58 AST 12 Units/L (13-39) L 07/18/18 12:39 B-Natriuretic Peptide 140 pg/mL (Less than 100) H 07/25/18 13:15 Serum Total Protein 5.8 g/dL (6.4-8.9) L 07/18/18 12:39 Albumin 2.8 g/dL (3.5-5.7) L 07/18/18 12:39 Albumin/Globulin Ratio 0.9 (1.1-2.2) L 07/18/18 12:39 Urine Glucose (UA) 100 mg/dL (Normal) H 07/18/18 13:50 Ur Leukocyte Esterase Large (Negative) H 07/18/18 13:50 Urine Microscopic WBC 50-100 per hpf (0-3) H 07/18/18 13:50 Ur Squamous Epith Cells Many per lpf (None-Few) H 07/18/18 13:50 Ur Culture Indicated? NO. (NO) A 07/18/18 13:50 Vancomycin Trough 14 mcg/mL (5-10) H 07/24/18 00:31 Staphylococcus sp PCR DETECTED (Not Detect) A 07/20/18 06:57 - Microbiology Findings Microbiology Findings: Microbiology, Last 48 Hours 07/20/18 06:57 Blood Culture - Final Peripheral Venipuncture No growth. Final report. 07/24/18 14:23 Blood Culture - Preliminary Peripheral Venipuncture Culture is incubating and being continuously monitored for growth. Final report to follow. 07/24/18 14:23 Blood Culture - Preliminary Peripheral Venipuncture Culture is incubating and being continuously monitored for growth. Final report to follow. - Clinical Findings Intake & Output: Intake & Output 07/24/18 07/25/18 07/25/18 23:59 07:59 15:59 Intake Total 480 / 480 600 / 600 Output Total 100 / 100 0 / 0 Balance 380 / 380 600 / 600 - Attending Attestation I examined this patient and my medical decision-making was reviewed with the Resident Physician. I agree with the documented findings, disposition and treatment plan as described except to the extent set forth below. Patient seen and examined. Labs, radiology, chart personally reviewed. Agree with resident's history and physical, assessment, plan with following comments: [employer] BLASTING: Patient follows commands, Pulmonary: Acceptable oxygenation and ventilation. Reviewed CT chest personally and with a ground glass appearance of multifocal infiltrates makes the infectious etiologies in the top of differential diagnosis. Covering atypical infection with macrolide or fluoroquinolone. Discussed with infectious disease team. Pulmonary edema sometimes can give picture similar to this and fungal infections. If no improvement patient will need procedure such as bronchoscopy and most certainly she will need a follow-up images to ensure resolution of this infiltrates. This was discussed with patient and family at the bedside. Thank you for consultation.
[2018-07-25] MEDS ORDERED: HYDROcodone BIT/Homatropine LQ 5 MG/5 ML UDC PO PRN (12:58)
--- NOTE | 2018-07-25 13:00 | Internal Med Progress Note ---
Hospitalist Progress Note - Encounter Date of Encounter: 07/25/18 Time of Encounter: 11:20 - Subjective Interval History: CT scan report noted. Mild non-productive cough is unchanged. Has had chronic back pain for more than 1-2 years. No leg weakness/numbness. No fever/chills. - Exam Vitals: Temp Pulse Resp BP Pulse Ox 98.4 F 98 16 150/70 94 07/25/18 10:17 07/25/18 10:17 07/25/18 10:17 07/25/18 10:17 07/25/18 10:17 Exam: General: Alert and oriented x 3 Cardiovascular:Normal S1 & S2, No JVD. Pulse regular. Lungs: clear to auscultation, no wheezes/rales Abdomen:Soft, non-tender, no rigidity. No CVA tenderness Neurological: LE power and sensation intact - Assessment and Plan (1) Gram-positive bacteremia Current Visit: Yes Status: Acute Assessment and Plan: 1 set of Blood c/s on 07/18 came out +ve for for S. epidermidis -> suspected contamination However, confusingly, repeat c/s on 07/20 is also growing GPC in 1 set -> S. hominis ?significance had CT T/A/P done yesterday which showed circumscribed ground glass opacities throughout both lungs. It also showed anklysosi of T7-10 vertebral body with periosteal irregularity that may be consistent with infectious/inflammatory etiologies. 3rd blood cultures done yesterday discussed with ID at length, suggested to consult pulmonary and spine surgery for opinions ID's input appreciated (2) UTI (urinary tract infection) Current Visit: Yes Status: Suspected Assessment and Plan: Presented with UTI failed outpatient therapy, concerning for complicated UTI. Was tried on Levaquin and nitrofurantoin as an outpatient without clinical improvement lactic acid normal, US retroperitoneum unremarkable urine culture -ve Improved after 7 days of IV Rocephin. Switched to Keflex 500mg QID today for the rest of 7 days (3) ENRIQUE (acute kidney injury) Current Visit: Yes Status: Acute Assessment and Plan: Creatinine improved on IVF and now eating well Ultrasound finding as above (4) CAD (coronary artery disease) Current Visit: Yes Status: Chronic Assessment and Plan: Does not seem to be on aspirin or beta angelina as an outpatient We will continue statin bb started for HTN as below (5) Diabetes mellitus Current Visit: Yes Status: Chronic Assessment and Plan: Lantus 35 units HS and lispro 5 units 3 times a day with LDSS (6) Hypertension Current Visit: Yes Status: Chronic Assessment and Plan: started to become hypertensive, was on aldactone at home which is on hold given her history of CAD, would benefit from bb coreg 6.25mg BID (7) Physical deconditioning Current Visit: Yes Status: Acute Assessment and Plan: PT/OT recommended SNIF placement, working with SW for placement while acute issues are being managed (8) DVT (deep venous thrombosis) Current Visit: No Status: Acute Assessment and Plan: Prior history of DVT on Coumadin. Had supratherapeutic INR of 10.7 initially for which she was given 1 dose of Vit K INR 1.7 today coumadin dosing per pharmacy - Time Spent with Patient Total time spent is greater than 50% in coordination of care (as documented) at patient's floor/unit and/or counseling patient: Greater than 35 minutes Plan of Care Discussed with: nurse (also discussed with pulmonary, spine surgery , and aids social worker) Internal Medicine: Result - Labs CBC & Chem 7: 07/25/18 02:39 07/25/18 02:39 Labs: Short CBC 07/25/18 Range/Units 02:39 WBC 6.1 (4.3-11.1) K/mcL Hgb 10.6 L (11.5-15.4) g/dL Hct 32.8 L (35.3-44.9) % Plt Count 251 (140-400) K/mcL Neutrophils # 3.5 (1.6-8.9) K/mcL BMP 07/25/18 02:39 Sodium 139 Potassium 4.2 Chloride 103 Carbon Dioxide 32 H BUN 17 Creatinine 0.82 Glucose 179 H Calcium 9.8 - ABG Interpretation ABG results: PT/INR, D-dimer PT 19.1 Seconds (9.4-12.1) H 07/25/18 02:39 - Impressions Impressions Abdomen/Pelvis CT 07/24/18 14:40 IMPRESSION: 1. Circumscribed ground-glass opacities throughout both lungs may represent an atypical infectious process or inflammatory process. Malignancy is felt to be unlikely. 2. Ankylosis of the T7-T10 vertebral body with disproportionate osteopenia and some periosteal irregularity. Infectious versus inflammatory etiologies must be considered. An atypical fungal infection may account for these findings. 3. Symmetric perinephric edema is most likely incidental in nature but can also be seen in the setting of acute renal insufficiency. 4. Diverticulosis without evidence of diverticulitis. The findings were sent to the Radiology Results Communication [facility] at 11:47 pm on 07/24/2018to be communicated to a licensed caregiver. D/ /24/2018 17:18:08 Trent ambrosio Interpreting Provider: Trent Sandoval Chest CT 07/24/18 14:40 IMPRESSION: 1. Circumscribed ground-glass opacities throughout both lungs may represent an atypical infectious process or inflammatory process. Malignancy is felt to be unlikely. 2. Ankylosis of the T7-T10 vertebral body with disproportionate osteopenia and some periosteal irregularity. Infectious versus inflammatory etiologies must be considered. An atypical fungal infection may account for these findings. 3. Symmetric perinephric edema is most likely incidental in nature but can also be seen in the setting of acute renal insufficiency. 4. Diverticulosis without evidence of diverticulitis. The findings were sent to the Radiology Results Communication Center at 11:47 pm on 07/24/2018to be communicated to a licensed caregiver. D/ /24/2018 17:18:08 Trent ambrosio Interpreting Provider: Trent Sandoval Consult Discharge Plan - Plan Referrals: Wiliam Rangel, [Primary Care Provider] - (2) UTI (urinary tract infection) Qualifiers: Urinary tract infection type: site unspecified Hematuria presence: without hematuria Qualified Code(s): N39.0 - Urinary tract infection, site not specified (4) CAD (coronary artery disease) Qualifiers: Coronary Disease-Associated Artery/Lesion type: unspecified vessel or lesion type [place] vs. transplanted heart: [place] heart Associated angina: without angina Qualified Code(s): I25.10 - Atherosclerotic heart disease of [place] coronary artery without angina pectoris (5) Diabetes mellitus Qualifiers: Diabetes mellitus type: type 2 Diabetes mellitus superintendent container terminal insulin use: with superintendent container terminal use Diabetes mellitus complication status: with unspecified complications Qualified Code(s): E11.8 - Type 2 diabetes mellitus with unspecified complications; Z79.4 - [facility] (current) use of insulin (6) Hypertension Qualifiers: Hypertension type: unspecified Qualified Code(s): I10 - Essential (primary) hypertension (8) DVT (deep venous thrombosis) Qualifiers: DVT location: lower extremity Affected thrombotic vein of extremity: unspecified vein of extremity Chronicity: unspecified Laterality: unspecified laterality Qualified Code(s): I82.409 - Acute embolism and thrombosis of unspecified deep veins of unspecified lower extremity
--- NOTE | 2018-07-25 13:27 | Spine Progress Note ---
Date of Encounter: 07/25/18 Time of Encounter: 13:22 Subjective Principal diagnosis: Urinary tract infection, ankylosed thoracic spine Interval history: -year-old woman with long-standing back pain admitted with UTI and being evaluated by infectious disease. We are asked to see secondary to finding of thoracic fusion with degenerative versus infectious changes.This is based on CT examination of the chest. On exam she is obese but is neurovascularly intact with regard to her bilateral upper and lower extremities. She has minima;l tenderness to palpation of the thoracic spine. CT scan of the ABD/pelvis reveals a grade I spondylolisthesis at L4-5. CT scan of the chest reveals multiple thoracic fused segments T7-T10 with junctional degenerative changes vs infection. I have low suspicion for infection in spine but patient needs an MRI of the Thoracic spine to further delinieate infection vs degenerative changes. Will follow up after study completion. Objective Vital signs: Vital Signs Temp Pulse Resp BP Pulse Ox 07/25/18 10:17 98.4 F 98 16 150/70 94 07/25/18 05:39 97.5 F L 59 15 152/71 95 07/24/18 19:28 98.3 F 97 16 161/83 95 07/24/18 15:02 98.4 F 68 14 118/60 96 Intake and Output 07/24/18 07/25/18 07/25/18 23:59 07:59 15:59 Intake Total 480 / 480 360 / 360 Output Total 100 / 100 0 / 0 Balance 380 / 380 360 / 360 Intake: Oral 480 / 480 360 / 360 Output: Urine 100 / 100 0 / 0 Other: Meal Dinner Breakfast Percent of Meal Consumed 100% 100% Stool Size Small Stool Consistency formed Stool Characteristics Normal for Patient Stool Color Brown # Voids 3 1 # Urine Diapers 0 # Bowel Movements 1 0 # Bowel Movement Diapers 0 Blood Glucose* 252 97 188 - Labs CBC & BMP: 07/25/18 02:39 07/25/18 02:39 Labs: Abnormal lab results RBC 3.56 M/mcL (3.82-4.97) L 07/25/18 02:39 Hgb 10.6 g/dL (11.5-15.4) L 07/25/18 02:39 Hct 32.8 % (35.3-44.9) L 07/25/18 02:39 RDW 16.0 % (11.5-14.5) H 07/25/18 02:39 Nucleated RBCs/100 WBC 0.3 /100 WBC (0) H 07/18/18 12:39 PT 19.1 Seconds (9.4-12.1) H 07/25/18 02:39 Carbon Dioxide 32 mEq/L (23-29) H 07/25/18 02:39 Glucose 179 mg/dL (70-105) H 07/25/18 02:39 POC Glucose 188 mg/dL (70-99) H 07/25/18 10:58 AST 12 Units/L (13-39) L 07/18/18 12:39 Serum Total Protein 5.8 g/dL (6.4-8.9) L 07/18/18 12:39 Albumin 2.8 g/dL (3.5-5.7) L 07/18/18 12:39 Albumin/Globulin Ratio 0.9 (1.1-2.2) L 07/18/18 12:39 Urine Glucose (UA) 100 mg/dL (Normal) H 07/18/18 13:50 Ur Leukocyte Esterase Large (Negative) H 07/18/18 13:50 Urine Microscopic WBC 50-100 per hpf (0-3) H 07/18/18 13:50 Ur Squamous Epith Cells Many per lpf (None-Few) H 07/18/18 13:50 Ur Culture Indicated? NO. (NO) A 07/18/18 13:50 Vancomycin Trough 14 mcg/mL (5-10) H 07/24/18 00:31 Staphylococcus sp PCR DETECTED (Not Detect) A 07/20/18 06:57 Consult Discharge Plan - Plan Referrals: Wiliam Rangel DO [Primary Care Provider] -
[2018-07-25] MEDS ORDERED: Azithromycin 250 MG TABLET PO ONE (13:32)
[2018-07-25] MEDS ORDERED: Gadolinium Contrast Agent (WT Based) IV PRN (13:38)
--- NOTE | 2018-07-25 13:57 | Infectious Disease Progress No ---
Date of Encounter: 07/25/18 Time of Encounter: 12:45 - Assessment and Plan (1) Sepsis Current Visit: Yes Status: Acute The patient had two SIRS criteria including leukocytosis and fevers at home. Etiology unclear. The patient had UTI symptoms on admission, but her urine was negative. She does have a dry cough, so consider pneumonia vs. other intra- abdominal source. Improved. WBC has normalized. She has been afebrile since admission. Blood cultures drawn 07/18/18 were positive 1/2 sets for S. epi. Repeat blood cultures 07/20/18 were positive 1/2 sets for S. hominis. Repeat blood cultures 07/24/18 are pending x 2 sets. Qualifiers: Sepsis type: sepsis due to unspecified organism Qualified Code(s): A41.9 - Sepsis, unspecified organism (2) Cough Current Visit: Yes Status: Acute Persistent dry, hacky cough. CXR 07/18/18 showed bibasilar opacities, likely atelectasis. CT chest 07/24/18 showed bilateral ground glass opacities concerning for atypical infection or inflammation. Recommend pulmonary to evaluate. Check RIP. Check S. pneumo and Legionella UAT. Send fungal serologies: Histo, Blasto, Crypto, Aspergillus galactomannan, and Fungitell. Discontinue Keflex. Start Levaquin 750mg IV daily. Duration of treatment depends on the clinical picture. Monitor renal function and dose-adjust antibiotics. (3) Abnormal CT scan Current Visit: Yes Status: Acute CT scan of the chest showed periosteal irregularity at T7-T10. Etiology unclear: infectious vs. degenerative. Dr. Vega consulted. Await recommendations. Would likely benefit from MRI, but will defer imaging recommendations to Dr. Vega. Check ESR and CRP. Repeat blood cultures x 2 sets now. May need biopsy if high index of suspicion for infectious etiology. (4) Bacteremia Current Visit: Yes Status: Acute Causative organism: S. epi and S. hominis. Blood cultures drawn 07/18/18 were positive 1/2 sets for S. epi. Repeat blood cultures drawn 07/20/18 were positive 1/2 sets for S. hominis. Given the clinical picture, likely a contaminant. Repeat blood cultures x 2 sets 07/24/18 are pending. Continue to observe off Vancomycin. (5) UTI (urinary tract infection) Current Visit: Yes Status: Suspected The patient had urinary symptoms including dysuria, frequency, and bilateral flank pain on admission. Causative organism unclear, but likely E. coli based on the previous urine cultures from [facility]. Complicated. The patient reports bilateral flank pain prior to admission which rises concern for possible pyelonephritis, although the patient's urinalysis and culture are negative. Additionally, her RP UTS was negative for pyelo. Urinalysis 07/18/18 contaminated. Culture was negative. Previous cultures at [facility] grew E. coli both times. Failed outpatient oral antibiotics. May need to consider other source of the patient's sepsis. Recommend CT of the abdomen and pelvis to evaluate. Clinically improved on IV Rocephin. Patient switched to PO Keflex by the primary team. Discontinue Keflex. Start Levaquin 750mg IV daily to cover both the urine and the lungs. Duration of treatment depends on the clinical picture. Qualifiers: Urinary tract infection type: site unspecified Hematuria presence: without hematuria Qualified Code(s): N39.0 - Urinary tract infection, site not specified (6) Hypercoagulable state Current Visit: Yes Status: Acute Etiology unclear. INR 10.7 on admission. Resolved. Management per the primary team. (7) CAD (coronary artery disease) Current Visit: Yes Status: Chronic Qualifiers: Coronary Disease-Associated Artery/Lesion type: unspecified vessel or lesion type [place] vs. transplanted heart: [place] heart Associated angina: without angina Qualified Code(s): I25.10 - Atherosclerotic heart disease of [place] coronary artery without angina pectoris (8) Diabetes mellitus Current Visit: Yes Status: Chronic Recommend aggressive glucose monitoring and control. Management per the primary team. Qualifiers: Diabetes mellitus type: type 2 Diabetes mellitus group home insulin use: with exterminator helper use Diabetes mellitus complication status: with unspecified complications Qualified Code(s): E11.8 - Type 2 diabetes mellitus with unspecified complications; Z79.4 - [facility] (current) use of insulin (9) Hypertension Current Visit: Yes Status: Chronic Qualifiers: Hypertension type: unspecified Qualified Code(s): I10 - Essential (primary ) hypertension - Subjective Interval history: Patient seen and examined. No acute events noted overnight. Patient sitting up in the chair. States overall she feels 100% better. Denies fevers, chills, or rigors. Denies chest pain or shortness of breath, but reports a chronic, non- productive hacky cough. Denies nausea, vomiting, or diarrhea. Denies abdominal pain, urinary complaints, or appetite changes. Denies oral thrush or new skin lesions. States dysuria and urinary frequency and flank pain have resolved. Reports chronic lower back pain that is at baseline. Infect Dis PN-Objective Data - Labs CBC & Chem 7: 07/25/18 02:39 07/25/18 02:39 Labs: Laboratory Results - last 24 hr 07/24/18 07/24/18 07/25/18 16:32 20:52 02:39 WBC RBC Hgb Hct MCV MCH MCHC RDW Plt Count MPV Immature Gran % Seg Neutrophils % Lymphocytes % Monocytes % Eosinophils % Basophils % Neutrophils # Lymphocytes # Monocytes # Eosinophils # Basophils # PT 19.1 H INR 1.7 Sodium Potassium Chloride Carbon Dioxide BUN Creatinine Est GFR ( Amer) Est GFR (Non-Af Amer) BUN/Creatinine Ratio Glucose POC Glucose 152 H 252 H Calculated Osmolality Calcium Magnesium 07/25/18 07/25/18 07/25/18 02:39 02:39 07:58 WBC 6.1 RBC 3.56 L Hgb 10.6 L Hct 32.8 L MCV 92.1 MCH 29.8 MCHC 32.3 RDW 16.0 H Plt Count 251 MPV 10.8 Immature Gran % 0.5 Seg Neutrophils % 56.7 Lymphocytes % 30.4 Monocytes % 8.8 Eosinophils % 2.9 Basophils % 0.7 Neutrophils # 3.5 Lymphocytes # 1.9 Monocytes # 0.5 Eosinophils # 0.2 Basophils # 0.0 PT INR Sodium 139 Potassium 4.2 Chloride 103 Carbon Dioxide 32 H BUN 17 Creatinine 0.82 Est GFR ( Amer) > 60 Est GFR (Non-Af Amer) > 60 BUN/Creatinine Ratio 21 Glucose 179 H POC Glucose 97 Calculated Osmolality 294 Calcium 9.8 Magnesium 1.6 07/25/18 10:58 WBC RBC Hgb Hct MCV MCH MCHC RDW Plt Count MPV Immature Gran % Seg Neutrophils % Lymphocytes % Monocytes % Eosinophils % Basophils % Neutrophils # Lymphocytes # Monocytes # Eosinophils # Basophils # PT INR Sodium Potassium Chloride Carbon Dioxide BUN Creatinine Est GFR ( Amer) Est GFR (Non-Af Amer) BUN/Creatinine Ratio Glucose POC Glucose 188 H Calculated Osmolality Calcium Magnesium Cultures: Cultures 07/20/18 06:57 Blood Culture - Final Peripheral Venipuncture No growth. Final report. 07/24/18 14:23 Blood Culture - Preliminary Peripheral Venipuncture Culture is incubating and being continuously monitored for growth. Final report to follow. 07/24/18 14:23 Blood Culture - Preliminary Peripheral Venipuncture Culture is incubating and being continuously monitored for growth. Final report to follow. 07/20/18 06:57 Blood Culture - Final Peripheral Venipuncture Staphyloco hominis ssp hominis Serology 07/20/18 Range/Units 06:57 A. baumannii (PCR) Not Detected (Not Detect) Angeline albicans (PCR) Not Detected (Not Detect) C. glabrata (PCR) Not Detected (Not Detect) C. krusei (PCR) Not Detected (Not Detect) C. parapsilosis (PCR) Not Detected (Not Detect) C. tropicalis (PCR) Not Detected (Not Detect) Enterobacteriac sp PCR Not Detected (Not Detect) E. cloacae complex PCR Not Detected (Not Detect) Enterococcus sp PCR Not Detected (Not Detect) E. coli (PCR) Not Detected (Not Detect) H. influenzae (PCR) Not Detected (Not Detect) Klebsiella oxytoca PCR Not Detected (Not Detect) Klebsiella pneumoniae Not Detected (Not Detect) List. monocytogenes PCR Not Detected (Not Detect) N. meningitidis (PCR) Not Detected (Not Detect) Proteus species (PCR) Not Detected (Not Detect) Serratia marcescens PCR Not Detected (Not Detect) Staphylococcus sp PCR DETECTED A (Not Detect) Staph aureus (PCR) Not Detected (Not Detect) mecA-Methicil Res Gene Not Detected (Not Detect) Streptococcus sp PCR Not Detected (Not Detect) Group A Strep DNA Not Detected (Not Detect) Group B Strep (PCR) Not Detected (Not Detect) Strep pneumoniae (PCR) Not Detected (Not Detect) P. aeruginosa (PCR) Not Detected (Not Detect) Deborah/B-Vanco Res Genes N/A (Not Detect) KPC (blaKPC) Detect PCR N/A (Not Detect) - Impressions Impressions Abdomen/Pelvis CT 07/24/18 14:40 IMPRESSION: 1. Circumscribed ground-glass opacities throughout both lungs may represent an atypical infectious process or inflammatory process. Malignancy is felt to be unlikely. 2. Ankylosis of the T7-T10 vertebral body with disproportionate osteopenia and some periosteal irregularity. Infectious versus inflammatory etiologies must be considered. An atypical fungal infection may account for these findings. 3. Symmetric perinephric edema is most likely incidental in nature but can also be seen in the setting of acute renal insufficiency. 4. Diverticulosis without evidence of diverticulitis. The findings were sent to the Radiology Results Communication Center at 11:47 pm on 07/24/2018to be communicated to a licensed caregiver. D/ / 07/24/2018 17:18:08 Trent ambrosio Interpreting Provider: Trent Sandoval Chest CT 07/24/18 14:40 IMPRESSION: 1. Circumscribed ground-glass opacities throughout both lungs may represent an atypical infectious process or inflammatory process. Malignancy is felt to be unlikely. 2. Ankylosis of the T7-T10 vertebral body with disproportionate osteopenia and some periosteal irregularity. Infectious versus inflammatory etiologies must be considered. An atypical fungal infection may account for these findings. 3. Symmetric perinephric edema is most likely incidental in nature but can also be seen in the setting of acute renal insufficiency. 4. Diverticulosis without evidence of diverticulitis. The findings were sent to the Radiology Results Communication Center at 11:47 pm on 07/24/2018to be communicated to a licensed caregiver. D/ / 07/24/2018 17:18:08 Trent ambrosio Interpreting Provider: Trent Sandoval Exam - Constitutional Vitals: Temp Pulse Resp BP Pulse Ox 98.4 F 98 16 150/70 94 07/25/18 10:17 07/25/18 10:17 07/25/18 10:17 07/25/18 10:17 07/25/18 10:17 General appearance: cooperative, no acute distress, obese - Head Head exam: Present: atraumatic, normal inspection, normocephalic - Eye Eye exam: Present: EOMI, normal appearance, PERRL Pupils: Present: normal accommodation - ENT ENT exam: Present: mucous membranes moist - Neck Neck exam: Present: normal inspection - Respiratory Respiratory exam: Present: CTAB. Absent: rales, respiratory distress, rhonchi, wheezes - Cardiovascular Cardiovascular exam: Present: RRR, +S1, +S2 - GI/Abdominal GI/Abdominal exam: Present: distended (obese), normal bowel sounds, soft. Absent: tenderness - Extremities Exam Extremities exam: Present: normal inspection, pedal edema (1+ BLE). Absent: joint swelling, tenderness - Back Exam Back exam: Present: normal inspection. Absent: CVA tenderness (L), CVA tenderness (R), paraspinal tenderness, vertebral tenderness - Neurological Exam Neurological exam: Present: alert, oriented X3, no focal deficits - Psychiatric Psychiatric exam: Present: normal affect, normal mood - Skin Skin exam: Present: dry, intact, normal color, warm Consult Discharge Plan - Plan Referrals: Wiliam Rangel DO [Primary Care Provider] - - Attending Attestation I examined this patient and my medical decision-making was reviewed with the Resident Physician. I agree with the documented findings, disposition and treatment plan as described except to the extent set forth below. I asked the patient QUESTIONS about travel history. She did live in [place] when she was younger. No exposure history to TB. 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 Patient denies travel outside of the [place]. She does not garden.
[2018-07-25] MEDS: Levofloxacin 750 MG/150 ML 750 MG/150 ML BAG IVPB SCH (15:03)
[2018-07-25] MEDS ORDERED: *HR* Warfarin 10 MG TABLET PO ONE (18:00)
[2018-07-25] MEDS: Insulin DETEMIR 100 UNIT/ML X5UNITS SQ SCH (20:34)
[2018-07-25 21:36] LABS: Adenovirus Not Detected (Not Detect); Bordetella Pertussis Not Detected (Not Detect); Chlamydophila pneumoniae Not Detected (Not Detect); Coronavirus 229E Not Detected (Not Detect); Coronavirus HKU1 Not Detected (Not Detect); Coronavirus NL63 Not Detected (Not Detect); Coronavirus OC43 Not Detected (Not Detect); Human Metapneumovirus Not Detected (Not Detect); Human Rhinovirus/Enterovirus Not Detected (Not Detect); Influenza A Subtype 2009 H1 Not Detected (Not Detect); Influenza A Untypeable Not Detected (Not Detect); Influenza B Not Detected (Not Detect); Mycoplasma pneumoniae Not Detected (Not Detect); Parainfluenza Virus 1 Not Detected (Not Detect); Parainfluenza Virus 2 Not Detected (Not Detect); Parainfluenza Virus 3 Not Detected (Not Detect); Parainfluenza Virus 4 Not Detected (Not Detect); Respiratory Syncytial Virus Not Detected (Not Detect)
[2018-07-26 06:51] LABS: INR 1.9; Prothrombin Time 21.3 Seconds (9.4-12.1)
[2018-07-26] MEDS: Insulin LISPRO 300 UNITS/3 ML VIAL SQ SCH ×7 (08:31→20:58)
[2018-07-26] MEDS ORDERED: Azithromycin 250 MG TABLET PO SCH (09:00)
[2018-07-26] MEDS: Gabapentin 300 MG CAPSULE PO SCH ×2 (09:26→20:57)
--- NOTE | 2018-07-26 12:50 | Internal Med Progress Note ---
Hospitalist Progress Note - Encounter Date of Encounter: 07/26/18 Time of Encounter: 08:30 - Subjective Interval History: has on/off cough. back pain is controlled denies fever, chills, chest pain, SOb, N/v/D tolerating diet - Exam Vitals: Temp Pulse Resp BP Pulse Ox 97.9 F 77 16 124/63 92 07/26/18 09:51 07/26/18 09:51 07/26/18 09:51 07/26/18 09:51 07/26/18 09:51 Exam: General: Patient is alert, oriented, no acute distress, obese Head: atraumatic, normocephalic, Eye: normal appearance, PERRL, no scleral icterus, no conjunctival injection ENT: mucous membranes moist, normal external ear exam Neck: normal inspection, trachea midline, full ROM, no carotid bruits Chest: normal inspection, symmetric chest rise, kyphosis Respiratory: Good respiratory effort. Bilateral breath sounds are clear occasional wheezes in the RLL Cardiovascular: Regular rate and rhythm. s1 and s2 No clicks, rubs, gallops, or murmors. Abdomen: Bowel sounds present normoactive x-4 quadrants. Abdomen is soft, nondistended. no Epigastric tenderness. No guarding or rebound. No organomegaly noted, obese musculoskeletal: Spontaneously moving all extremities. +2 edema, no calf tenderness Skin: warm, dry, intact. Neuro: Alert and oriented x4. Sensation light touch intact.no focal deficit Psych: Patient's affect is normal - Assessment and Plan (1) Gram-positive bacteremia Current Visit: Yes Status: Acute Assessment and Plan: 1 set of Blood c/s on 07/18 came out +ve for for S. epidermidis -> suspected contamination repeat c/s on 07/20 is also growing GPC in 1 set -> S. hominis Repeat blood cultures x 2 sets 07/24/18 are pending Continue to observe off Vancomycin. had CT T/A/P done yesterday which showed circumscribed ground glass opacities throughout both lungs. It also showed anklysosi of T7-10 vertebral body with periosteal irregularity that may be consistent with infectious/inflammatory etiologies. on IV levaquin as of 07/25/18 ID, spine and pulmonolgy on board (2) Cough Current Visit: Yes Status: Acute Assessment and Plan: CXR 07/18/18 showed bibasilar opacities, likely atelectasis. CT chest 07/24/18 showed bilateral ground glass opacities concerning for atypical infection or inflammation. pulmonology on board started on IV levaquin serology negative Check S. pneumo and Legionella UAT- pending Send fungal serologies: Histo, Blasto, Crypto, Aspergillus galactomannan, and Fungitell- pending (3) Abnormal CT scan Current Visit: Yes Status: Acute Assessment and Plan: CT scan of the chest showed periosteal irregularity at T7-T10. Etiology unclear: infectious vs. degenerative. Dr. juarez was consulted ID on board on IV levaquin ESR, CRP new bcx sent 07/24 scheduled for MRI of the spine 07/26/18 (4) UTI (urinary tract infection) Current Visit: Yes Status: Suspected Assessment and Plan: Presented with UTI failed outpatient therapy, concerning for complicated UTI. Was tried on Levaquin and nitrofurantoin as an outpatient without clinical improvement lactic acid normal, US retroperitoneum unremarkable urine culture -ve now on IV levaquin ID on board S/P Ct A/p - results above (5) DVT (deep venous thrombosis) Current Visit: No Status: Acute Assessment and Plan: Prior history of DVT on Coumadin. Had supratherapeutic INR of 10.7 s/p 1 dose of Vit K INR 1.9 coumadin dosing per pharmacy (6) CAD (coronary artery disease) Current Visit: Yes Status: Chronic Assessment and Plan: Does not seem to be on aspirin or beta angelina as an outpatient on statin and BB (7) Diabetes mellitus Current Visit: Yes Status: Chronic Assessment and Plan: Lantus 35 units HS and lispro 5 units 3 times a day with LDSS (8) Hypertension Current Visit: Yes Status: Chronic Assessment and Plan: coreg 6.25mg BID (9) Physical deconditioning Current Visit: Yes Status: Acute Assessment and Plan: PT/OT recommended SNIF placement, working with SW for placement while acute issues are being managed (10) Obese Current Visit: Yes Status: Acute Assessment and Plan: BMI 39 counseled on nutrition DVT Prophylaxis: on coumadin - Time Spent with Patient Total time spent is greater than 50% in coordination of care (as documented) at patient's floor/unit and/or counseling patient: Internal Medicine: Result - Labs CBC & Chem 7: 07/25/18 02:39 07/25/18 02:39 - ABG Interpretation ABG results: PT/INR, D-dimer PT 21.3 Seconds (9.4-12.1) H 07/26/18 06:20 Consult Discharge Plan - Plan Referrals: Wiliam Rangel DO [Primary Care Provider] - (4) UTI (urinary tract infection) Qualifiers: Urinary tract infection type: site unspecified Hematuria presence: without hematuria Qualified Code(s): N39.0 - Urinary tract infection, site not specified (5) DVT (deep venous thrombosis) Qualifiers: DVT location: lower extremity Affected thrombotic vein of extremity: unspecified vein of extremity Chronicity: unspecified Laterality: unspecified laterality Qualified Code(s): I82.409 - Acute embolism and thrombosis of unspecified deep veins of unspecified lower extremity (6) CAD (coronary artery disease) Qualifiers: Coronary Disease-Associated Artery/Lesion type: unspecified vessel or lesion type [place] vs. transplanted heart: [place] heart Associated angina: without angina Qualified Code(s): I25.10 - Atherosclerotic heart disease of [place] coronary artery without angina pectoris (7) Diabetes mellitus Qualifiers: Diabetes mellitus type: type 2 Diabetes mellitus continuous churn buttermaker insulin use: with assisted use Diabetes mellitus complication status: with unspecified complications Qualified Code(s): E11.8 - Type 2 diabetes mellitus with unspecified complications; Z79.4 - exterminator helper (current) use of insulin (8) Hypertension Qualifiers: Hypertension type: unspecified Qualified Code(s): I10 - Essential (primary) hypertension
[2018-07-26] MEDS ORDERED: *HR* Warfarin 7.5 MG TABLET PO ONE (18:00)
[2018-07-26] MEDS: Insulin DETEMIR 100 UNIT/ML X5UNITS SQ SCH (20:58)
[2018-07-27 06:44] LABS: Hematocrit 33.8 % (35.3-44.9); Hemoglobin 10.8 g/dL (11.5-15.4); Mean Corpuscular Volume 93.9 fL (83.0-100.0); Mean Platelet Volume 10.6 fL (9.4-12.4); Platelet Count 258 K/mcL (140-400); Red Cell Distribution Width 15.8 % (11.5-14.5)
[2018-07-27 06:48] LABS: INR 2.1; Prothrombin Time 23.2 Seconds (9.4-12.1)
[2018-07-27] MEDS: Insulin LISPRO 300 UNITS/3 ML VIAL SQ SCH ×7 (08:17→21:20)
[2018-07-27] MEDS: Gabapentin 300 MG CAPSULE PO SCH ×2 (08:20→21:24)
[2018-07-27] MEDS: Acetaminophen 325 MG TABLET PO PRN ×2 (09:17→21:26)
[2018-07-27 09:25] LABS: BUN/Creatinine Ratio 24 (6-26); Blood Urea Nitrogen 20 mg/dL (8-23); Calcium 9.8 mg/dL (8.6-10.3); Carbon Dioxide 30 mEq/L (23-29); Chloride 105 mEq/L (98-107); Glucose 151 mg/dL (70-105); Osmolality,Calculated 296 (280-300); Potassium 4.3 mEq/L (3.5-5.1); Sodium 140 mEq/L (136-145); eGFR For Non-African Americans > 60 (> 60)
--- NOTE | 2018-07-27 10:22 | Pulmonology Progress Note ---
Date of Encounter: 07/27/18 Time of Encounter: 10:00 Assessment and Plan (1) Cough Current Visit: Yes Status: Resolved This is has improved significantly according to the patient with current antibiotic and as recommended earlier then she would need a follow-up images in 1-2 months and can follow up as outpatient. Please call for any questions. (2) Abnormal CT scan Current Visit: Yes Status: Acute As recommended above, follow-up images to ensure resolution Subjective Principal diagnosis: Urinary tract infection, ankylosed thoracic spine Interval history: Patient feels her cough is improving and denies any sputum production and she feels her breathing is good. Objective PUL Vital signs: Last Vital Signs Temp 97.4 F L 07/27/18 07:31 Pulse 61 07/27/18 07:31 Resp 16 07/27/18 07:31 BP 162/77 07/27/18 07:31 Pulse Ox 98 07/27/18 07:31 General: Patient is in no acute distress. HEENT: Normocephalic atraumatic, pupils are equal round and reactive to light and accommodation, anicteric sclera, nares is patent, mucous membranes moist, no JVD, trachea is midline Cardiovascular: Normal sinus rhythm, S1 and S2 audible, no murmur or rubs Respiratory: Clear to auscultation bilaterally. No acute distress. No wheezing. Patient not using accessory muscles. Abdomen: Soft, nontender, nondistended, positive bowel sounds in all 4 quadrants Extremities: Warm, dry, trace lower extremity edema. Normal capillary refill. Neuro: Alert and oriented and follows commands. Skin: Warm to touch : No obvious abnormalities. Psych: Normal Results - Laboratory Findings CBC and BMP: 07/27/18 06:05 07/27/18 06:05 PT/INR, D-dimer PT 23.2 Seconds (9.4-12.1) H 07/27/18 06:05 Abnormal lab findings: Abnormal lab results RBC 3.60 M/mcL (3.82-4.97) L 07/27/18 06:05 Hgb 10.8 g/dL (11.5-15.4) L 07/27/18 06:05 Hct 33.8 % (35.3-44.9) L 07/27/18 06:05 RDW 15.8 % (11.5-14.5) H 07/27/18 06:05 Nucleated RBCs/100 WBC 0.3 /100 WBC (0) H 07/18/18 12:39 ESR 43 mm/hr (0-15) H 07/26/18 14:14 PT 23.2 Seconds (9.4-12.1) H 07/27/18 06:05 Carbon Dioxide 30 mEq/L (23-29) H 07/27/18 06:05 Glucose 151 mg/dL (70-105) H 07/27/18 06:05 POC Glucose 230 mg/dL (70-99) H 07/26/18 20:41 AST 12 Units/L (13-39) L 07/18/18 12:39 B-Natriuretic Peptide 140 pg/mL (Less than 100) H 07/25/18 13:15 Serum Total Protein 5.8 g/dL (6.4-8.9) L 07/18/18 12:39 Albumin 2.8 g/dL (3.5-5.7) L 07/18/18 12:39 Albumin/Globulin Ratio 0.9 (1.1-2.2) L 07/18/18 12:39 Urine Glucose (UA) 100 mg/dL (Normal) H 07/18/18 13:50 Ur Leukocyte Esterase Large (Negative) H 07/18/18 13:50 Urine Microscopic WBC 50-100 per hpf (0-3) H 07/18/18 13:50 Ur Squamous Epith Cells Many per lpf (None-Few) H 07/18/18 13:50 Ur Culture Indicated? NO. (NO) A 07/18/18 13:50 Vancomycin Trough 14 mcg/mL (5-10) H 07/24/18 00:31 Staphylococcus sp PCR DETECTED (Not Detect) A 07/20/18 06:57 - Microbiology Findings Microbiology Findings: Microbiology, Last 48 Hours 07/25/18 14:42 Blood Culture - Preliminary Peripheral Venipuncture Culture is incubating and being continuously monitored for growth. Final report to follow. 07/25/18 14:37 Blood Culture - Preliminary Peripheral Venipuncture Culture is incubating and being continuously monitored for growth. Final report to follow. 07/20/18 06:57 Blood Culture - Final Peripheral Venipuncture No growth. Final report. - Clinical Findings Intake & Output: Intake & Output 07/26/18 07/27/18 07/27/18 23:59 07:59 15:59 Intake Total 600 / 600 480 / 480 360 / 360 Output Total 200 / 200 200 / 200 Balance 400 / 400 280 / 280 360 / 360 Weight 106.4 kg Consult Discharge Plan - Plan Referrals: Wiliam Rangel DO [Primary Care Provider] -
--- NOTE | 2018-07-27 14:19 | Internal Med Progress Note ---
Hospitalist Progress Note - Encounter Date of Encounter: 07/27/18 Time of Encounter: 08:30 - Subjective Interval History: has no complaints, excited about her MRI results denies fever, chills, chest pain, SOb, N/v/D tolerating diet - Exam Vitals: Temp Pulse Resp BP Pulse Ox 97.8 F 62 16 119/67 93 07/27/18 10:26 07/27/18 10:07/27/18 10:07/27/18 10:07/27/18 10:26 Exam: General: Patient is alert, oriented, no acute distress, obese Head: atraumatic, normocephalic, Eye: normal appearance, PERRL, no scleral icterus, no conjunctival injection ENT: mucous membranes moist, normal external ear exam Neck: normal inspection, trachea midline, full ROM, no carotid bruits Chest: normal inspection, symmetric chest rise, kyphosis Respiratory: Good respiratory effort. Bilateral breath sounds are clear occasional wheezes in the RLL Cardiovascular: Regular rate and rhythm. s1 and s2 No clicks, rubs, gallops, or murmors. Abdomen: Bowel sounds present normoactive x-4 quadrants. Abdomen is soft, nondistended. no Epigastric tenderness. No guarding or rebound. No organomegaly noted, obese musculoskeletal: Spontaneously moving all extremities. +2 edema, no calf tenderness Skin: warm, dry, intact. ,ild erythema of the right lower extremity around the ankle with out warmth Neuro: Alert and oriented x4. Sensation light touch intact.no focal deficit Psych: Patient's affect is normal - Assessment and Plan (1) Gram-positive bacteremia Current Visit: Yes Status: Acute Assessment and Plan: 1 set of Blood c/s on 07/18 came out +ve for for S. epidermidis -> suspected contamination repeat c/s on 07/20 is also growing GPC in 1 set -> S. hominis Repeat blood cultures x 2 sets 07/24/18 and 07/25/18 are pending Continue to observe off Vancomycin. had CT T/A/P done yesterday which showed circumscribed ground glass opacities throughout both lungs. It also showed anklysosi of T7-10 vertebral body with periosteal irregularity that may be consistent with infectious/inflammatory etiologies. on IV levaquin as of 07/25/18 ID, spine and pulmonolgy on board (2) Cough Current Visit: Yes Status: Resolved Assessment and Plan: CXR 07/18/18 showed bibasilar opacities, likely atelectasis. CT chest 07/24/18 showed bilateral ground glass opacities concerning for atypical infection or inflammation. pulmonology on board on IV levaquin serology negative Check S. pneumo and Legionella UAT- pending fungal serologies: Histo, Blasto, Crypto, Aspergillus galactomannan, and Fungitell- in process (3) Abnormal CT scan Current Visit: Yes Status: Acute Assessment and Plan: CT scan of the chest showed periosteal irregularity at T7-T10. not likely infectious etiology as MRI on 07/26/18- No evidence of active thoracic spine infection. Dr. juarez was consulted and on board ID on board on IV levaquin ESR 43, CRP <5 Repeat blood cultures x 2 sets 07/24/18 and 07/25/18 are pending IMPRESSION: No evidence of active thoracic spine infection. Chronic T7-T10 ankylosis. Severe degenerative disc disease at T5-6, T6-7, and T10-11. (4) UTI (urinary tract infection) Current Visit: Yes Status: Suspected Assessment and Plan: Presented with UTI failed outpatient therapy, concerning for complicated UTI. Was tried on Levaquin and nitrofurantoin as an outpatient without clinical improvement lactic acid normal, US retroperitoneum unremarkable urine culture -ve now on IV levaquin ID on board S/P Ct A/p - results above (5) DVT (deep venous thrombosis) Current Visit: No Status: Acute Assessment and Plan: Prior history of DVT on Coumadin. Had supratherapeutic INR of 10.7 s/p 1 dose of Vit K INR 07/27/18 2.1 coumadin dosing per pharmacy (6) CAD (coronary artery disease) Current Visit: Yes Status: Chronic Assessment and Plan: Does not seem to be on aspirin or beta angelina as an outpatient on statin and started on BB will start her on ASA from tomorrow if no CI (7) Diabetes mellitus Current Visit: Yes Status: Chronic Assessment and Plan: Lantus 35 units HS and lispro 5 units 3 times a day with LDSS (8) Hypertension Current Visit: Yes Status: Chronic Assessment and Plan: coreg 6.25mg BID (9) Physical deconditioning Current Visit: Yes Status: Acute Assessment and Plan: PT/OT recommended SNIF placement working with SW for placement while acute issues are being managed (10) Obese Current Visit: Yes Status: Acute Assessment and Plan: BMI 39 counseled on nutrition - Time Spent with Patient Total time spent is greater than 50% in coordination of care (as documented) at patient's floor/unit and/or counseling patient: Internal Medicine: Result - Labs CBC & Chem 7: 07/27/18 06:05 07/27/18 06:05 Labs: Short CBC 07/27/18 Range/Units 06:05 WBC 4.8 (4.3-11.1) K/mcL Hgb 10.8 L (11.5-15.4) g/dL Hct 33.8 L (35.3-44.9) % Plt Count 258 (140-400) K/mcL BMP 07/27/18 06:05 Sodium 140 Potassium 4.3 Chloride 105 Carbon Dioxide 30 H BUN 20 Creatinine 0.82 Glucose 151 H Calcium 9.8 - ABG Interpretation ABG results: PT/INR, D-dimer PT 23.2 Seconds (9.4-12.1) H 07/27/18 06:05 Consult Discharge Plan - Plan Referrals: Wiliam Rangel DO [Primary Care Provider] - (4) UTI (urinary tract infection) Qualifiers: Urinary tract infection type: site unspecified Hematuria presence: without hematuria Qualified Code(s): N39.0 - Urinary tract infection, site not specified (5) DVT (deep venous thrombosis) Qualifiers: DVT location: lower extremity Affected thrombotic vein of extremity: unspecified vein of extremity Chronicity: unspecified Laterality: unspecified laterality Qualified Code(s): I82.409 - Acute embolism and thrombosis of unspecified deep veins of unspecified lower extremity (6) CAD (coronary artery disease) Qualifiers: Coronary Disease-Associated Artery/Lesion type: unspecified vessel or lesion type [place] vs. transplanted heart: [place] heart Associated angina: without angina Qualified Code(s): I25.10 - Atherosclerotic heart disease of [place] coronary artery without angina pectoris (7) Diabetes mellitus Qualifiers: Diabetes mellitus type: type 2 Diabetes mellitus care home insulin use: with care home use Diabetes mellitus complication status: with unspecified complications Qualified Code(s): E11.8 - Type 2 diabetes mellitus with unspecified complications; Z79.4 - vp production (current) use of insulin (8) Hypertension Qualifiers: Hypertension type: unspecified Qualified Code(s): I10 - Essential (primary) hypertension
[2018-07-27] MEDS: Levofloxacin 750 MG/150 ML 750 MG/150 ML BAG IVPB SCH (15:32)
[2018-07-27] MEDS ORDERED: *HR* Warfarin 10 MG TABLET PO ONE (18:00)
[2018-07-27] MEDS: Insulin DETEMIR 100 UNIT/ML X5UNITS SQ SCH (21:24)
[2018-07-28 04:21] LABS: Hematocrit 35.1 % (35.3-44.9); Hemoglobin 11.3 g/dL (11.5-15.4); Mean Corpuscular HGB Conc 32.2 g/dL (31.6-35.5); Mean Corpuscular Hemoglobin 30.1 pg (28.0-33.3); Mean Corpuscular Volume 93.6 fL (83.0-100.0); Mean Platelet Volume 10.4 fL (9.4-12.4); Platelet Count 272 K/mcL (140-400); Red Blood Count 3.75 M/mcL (3.82-4.97); Red Cell Distribution Width 15.9 % (11.5-14.5)
[2018-07-28 04:41] LABS: BUN/Creatinine Ratio 23 (6-26); Blood Urea Nitrogen 21 mg/dL (8-23); Calcium 9.6 mg/dL (8.6-10.3); Carbon Dioxide 31 mEq/L (23-29); Chloride 103 mEq/L (98-107); Glucose 186 mg/dL (70-105); Osmolality,Calculated 298 (280-300); Potassium 4.2 mEq/L (3.5-5.1); Sodium 140 mEq/L (136-145); eGFR For Non-African Americans 59 (> 60)
[2018-07-28] MEDS: Insulin LISPRO 300 UNITS/3 ML VIAL SQ SCH ×7 (07:53→21:48)
[2018-07-28] MEDS: Aspirin 81 MG TAB.CHEW PO SCH (07:56)
[2018-07-28] MEDS: Gabapentin 300 MG CAPSULE PO SCH ×2 (07:56→20:33)
--- NOTE | 2018-07-28 11:14 | Internal Med Progress Note ---
Hospitalist Progress Note - Encounter Date of Encounter: 07/28/18 Time of Encounter: 08:30 - Subjective Interval History: has no complaints, reports that she has a friend that could take care of at home. Inquires about having to go to a correction. All questions answered. She is to talk to the case advocate and social workers tomorrow denies fever, chills, chest pain, SOb, N/v/D tolerating diet - Exam Vitals: Temp Pulse Resp BP Pulse Ox 98.4 F 59 14 110/63 94 07/28/18 10:21 07/28/18 10:21 07/28/18 10:21 07/28/18 10:21 07/28/18 10:21 Exam: General: Patient is alert, oriented, no acute distress, obese Head: atraumatic, normocephalic, Eye: normal appearance, PERRL, no scleral icterus, no conjunctival injection ENT: mucous membranes moist, normal external ear exam Neck: normal inspection, trachea midline, full ROM, no carotid bruits Chest: normal inspection, symmetric chest rise, kyphosis Respiratory: Good respiratory effort. Bilateral breath sounds are clear occasional wheezes in the RLL Cardiovascular: Regular rate and rhythm. s1 and s2 No clicks, rubs, gallops, or murmors. Abdomen: Bowel sounds present normoactive x-4 quadrants. Abdomen is soft, nondistended. no Epigastric tenderness. No guarding or rebound. No organomegaly noted, obese musculoskeletal: Spontaneously moving all extremities. +2 edema, no calf tenderness Skin: warm, dry, intact. ,ild erythema of the right lower extremity around the ankle with out warmth Neuro: Alert and oriented x4. Sensation light touch intact.no focal deficit Psych: Patient's affect is normal - Assessment and Plan (1) Gram-positive bacteremia Current Visit: Yes Status: Acute Assessment and Plan: 1 set of Blood c/s on 07/18 came out +ve for for S. epidermidis -> suspected contamination repeat c/s on 07/20 is also growing GPC in 1 set -> S. hominis Repeat blood cultures x 2 sets 07/24/18 and 07/25/18 are pending Continue to observe off Vancomycin. had CT T/A/P done yesterday which showed circumscribed ground glass opacities throughout both lungs. It also showed anklysosi of T7-10 vertebral body with periosteal irregularity that may be consistent with infectious/inflammatory etiologies. on IV levaquin as of 07/25/18 ID, spine and pulmonolgy on board (2) Cough Current Visit: Yes Status: Resolved Assessment and Plan: CXR 07/18/18 showed bibasilar opacities, likely atelectasis. CT chest 07/24/18 showed bilateral ground glass opacities concerning for atypical infection or inflammation. pulmonology on board on IV levaquin serology negative Check S. pneumo and Legionella UAT- pending fungal serologies: Histo, Blasto, Crypto, Aspergillus galactomannan, and Fungitell- in process (3) Abnormal CT scan Current Visit: Yes Status: Acute Assessment and Plan: CT scan of the chest showed periosteal irregularity at T7-T10. not likely infectious etiology as MRI on 07/26/18- No evidence of active thoracic spine infection. Dr. juarez was consulted and on board ID on board on IV levaquin ESR 43, CRP <5 Repeat blood cultures x 2 sets 07/24/18 and 07/25/18 are pending IMPRESSION: No evidence of active thoracic spine infection. Chronic T7-T10 ankylosis. Severe degenerative disc disease at T5-6, T6-7, and T10-11. (4) UTI (urinary tract infection) Current Visit: Yes Status: Suspected Assessment and Plan: Presented with UTI failed outpatient therapy, concerning for complicated UTI. Was tried on Levaquin and nitrofurantoin as an outpatient without clinical improvement lactic acid normal, US retroperitoneum unremarkable urine culture -ve now on IV levaquin ID on board S/P Ct A/p - results above (5) DVT (deep venous thrombosis) Current Visit: No Status: Acute Assessment and Plan: Prior history of DVT on Coumadin. Had supratherapeutic INR of 10.7 s/p 1 dose of Vit K INR therapeutic coumadin dosing per pharmacy (6) CAD (coronary artery disease) Current Visit: Yes Status: Chronic Assessment and Plan: Does not seem to be on aspirin or beta angelina as an outpatient on statin, BB and ASA (7) Diabetes mellitus Current Visit: Yes Status: Chronic Assessment and Plan: Lantus 35 units HS and lispro 5 units 3 times a day with LDSS (8) Hypertension Current Visit: Yes Status: Chronic Assessment and Plan: coreg 6.25mg BID (9) Physical deconditioning Current Visit: Yes Status: Acute Assessment and Plan: PT/OT recommended SNIF placement working with SW for placement while acute issues are being managed (10) Obese Current Visit: Yes Status: Acute Assessment and Plan: BMI 39 counseled on nutrition - Time Spent with Patient Total time spent is greater than 50% in coordination of care (as documented) at patient's floor/unit and/or counseling patient: Internal Medicine: Result - Labs CBC & Chem 7: 07/28/18 03:39 07/28/18 03:39 Labs: Short CBC 07/28/18 Range/Units 03:39 WBC 5.1 (4.3-11.1) K/mcL Hgb 11.3 L (11.5-15.4) g/dL Hct 35.1 L (35.3-44.9) % Plt Count 272 (140-400) K/mcL BMP 07/28/18 03:39 Sodium 140 Potassium 4.2 Chloride 103 Carbon Dioxide 31 H BUN 21 Creatinine 0.92 Glucose 186 H Calcium 9.6 - ABG Interpretation ABG results: PT/INR, D-dimer PT 23.0 Seconds (9.4-12.1) H 07/28/18 03:39 Consult Discharge Plan - Plan Referrals: Wiliam Rangel DO [Primary Care Provider] - (4) UTI (urinary tract infection) Qualifiers: Urinary tract infection type: site unspecified Hematuria presence: without hematuria Qualified Code(s): N39.0 - Urinary tract infection, site not specified (5) DVT (deep venous thrombosis) Qualifiers: DVT location: lower extremity Affected thrombotic vein of extremity: unspecified vein of extremity Chronicity: unspecified Laterality: unspecified laterality Qualified Code(s): I82.409 - Acute embolism and thrombosis of unspecified deep veins of unspecified lower extremity (6) CAD (coronary artery disease) Qualifiers: Coronary Disease-Associated Artery/Lesion type: unspecified vessel or lesion type [place] vs. transplanted heart: [place] heart Associated angina: without angina Qualified Code(s): I25.10 - Atherosclerotic heart disease of [place] coronary artery without angina pectoris (7) Diabetes mellitus Qualifiers: Diabetes mellitus type: type 2 Diabetes mellitus assisted insulin use: with parts counterman use Diabetes mellitus complication status: with unspecified complications Qualified Code(s): E11.8 - Type 2 diabetes mellitus with unspecified complications; Z79.4 - intermediate (current) use of insulin (8) Hypertension Qualifiers: Hypertension type: unspecified Qualified Code(s): I10 - Essential (primary) hypertension
[2018-07-28 16:09] LABS: A.galactomannan Ag Index 0.03
--- NOTE | 2018-07-28 16:24 | Spine Progress Note ---
Date of Encounter: 07/28/18 Time of Encounter: 16:23 Subjective Principal diagnosis: Urinary tract infection, ankylosed thoracic spine Interval history: -year-old woman with long-standing back pain admitted with UTI and being evaluated by infectious disease. We are asked to see secondary to finding of thoracic fusion with degenerative versus infectious changes.This is based on CT examination of the chest. On exam she is obese but is neurovascularly intact with regard to her bilateral upper and lower extremities. She has minima;l tenderness to palpation of the thoracic spine. CT scan of the ABD/pelvis reveals a grade I spondylolisthesis at L4-5. CT scan of the chest reveals multiple thoracic fused segments T7-T10 with junctional degenerative changes vs infection. MRI of the thoracic spine reveals chronic ankylosis segments T7-T10. There are multilevel degenerative changes in the thoracic spine but no evidence of infection. As suspected, this favors a degenerative etiology. No concerns for active infection, discitis, or osteomyelitis. She can be treated symptomatically with regard to any spine complaints which may include outpatient physical therapy. Please call if any further questions or concerns. Objective Vital signs: Vital Signs Temp Pulse Resp BP Pulse Ox 07/28/18 14:20 98.3 F 71 16 127/70 95 07/28/18 10:21 98.4 F 59 14 110/63 94 07/28/18 05:38 98.4 F 87 16 145/71 96 07/27/18 20:39 98.2 F 66 18 139/71 95 Intake and Output 07/28/18 07/28/18 07/28/18 07:59 15:59 23:59 Intake Total 0 / 0 360 / 360 Output Total 1200 / 1200 200 / 200 Balance -1200 / -1200 160 / 160 Intake: Oral 0 / 0 360 / 360 Output: Urine 1200 / 1200 200 / 200 Other: Meal Breakfast Weight 106 kg Blood Glucose* 173 197 Patient Weight 07/28/18 23:59 Weight 106 kg - Labs CBC & BMP: 07/28/18 03:39 07/28/18 03:39 Labs: Abnormal lab results RBC 3.75 M/mcL (3.82-4.97) L 07/28/18 03:39 Hgb 11.3 g/dL (11.5-15.4) L 07/28/18 03:39 Hct 35.1 % (35.3-44.9) L 07/28/18 03:39 RDW 15.9 % (11.5-14.5) H 07/28/18 03:39 Nucleated RBCs/100 WBC 0.3 /100 WBC (0) H 07/18/18 12:39 ESR 43 mm/hr (0-15) H 07/26/18 14:14 PT 23.0 Seconds (9.4-12.1) H 07/28/18 03:39 Carbon Dioxide 31 mEq/L (23-29) H 07/28/18 03:39 Est GFR (Non-Af Amer) 59 (> 60) L 07/28/18 03:39 Glucose 186 mg/dL (70-105) H 07/28/18 03:39 POC Glucose 196 mg/dL (70-99) H 07/27/18 20:38 AST 12 Units/L (13-39) L 07/18/18 12:39 B-Natriuretic Peptide 140 pg/mL (Less than 100) H 07/25/18 13:15 Serum Total Protein 5.8 g/dL (6.4-8.9) L 07/18/18 12:39 Albumin 2.8 g/dL (3.5-5.7) L 07/18/18 12:39 Albumin/Globulin Ratio 0.9 (1.1-2.2) L 07/18/18 12:39 Urine Glucose (UA) 100 mg/dL (Normal) H 07/18/18 13:50 Ur Leukocyte Esterase Large (Negative) H 07/18/18 13:50 Urine Microscopic WBC 50-100 per hpf (0-3) H 07/18/18 13:50 Ur Squamous Epith Cells Many per lpf (None-Few) H 07/18/18 13:50 Ur Culture Indicated? NO. (NO) A 07/18/18 13:50 Vancomycin Trough 14 mcg/mL (5-10) H 07/24/18 00:31 Staphylococcus sp PCR DETECTED (Not Detect) A 07/20/18 06:57 Consult Discharge Plan - Plan Referrals: Wiliam Rangel DO [Primary Care Provider] -
[2018-07-28] MEDS ORDERED: *HR* Warfarin 10 MG TABLET PO ONE (18:00)
[2018-07-28] MEDS: Insulin DETEMIR 100 UNIT/ML X5UNITS SQ SCH (20:33)
[2018-07-29 06:25] LABS: Hematocrit 34.7 % (35.3-44.9); Hemoglobin 11.5 g/dL (11.5-15.4); Mean Corpuscular HGB Conc 33.1 g/dL (31.6-35.5); Mean Corpuscular Hemoglobin 30.7 pg (28.0-33.3); Mean Corpuscular Volume 92.8 fL (83.0-100.0); Mean Platelet Volume 10.2 fL (9.4-12.4); Platelet Count 252 K/mcL (140-400); Red Blood Count 3.74 M/mcL (3.82-4.97); Red Cell Distribution Width 15.9 % (11.5-14.5)
[2018-07-29 06:38] LABS: INR 2.6; Prothrombin Time 29.5 Seconds (9.4-12.1)
[2018-07-29 06:51] LABS: BUN/Creatinine Ratio 23 (6-26); Blood Urea Nitrogen 20 mg/dL (8-23); Calcium 9.6 mg/dL (8.6-10.3); Carbon Dioxide 29 mEq/L (23-29); Chloride 106 mEq/L (98-107); Glucose 134 mg/dL (70-105); Osmolality,Calculated 299 (280-300); Potassium 4.5 mEq/L (3.5-5.1); Sodium 142 mEq/L (136-145); eGFR For Non-African Americans > 60 (> 60)
[2018-07-29] MEDS: Gabapentin 300 MG CAPSULE PO SCH ×2 (08:37→20:43)
[2018-07-29] MEDS: Aspirin 81 MG TAB.CHEW PO SCH (08:38)
[2018-07-29] MEDS: Insulin LISPRO 300 UNITS/3 ML VIAL SQ SCH ×7 (08:38→20:40)
[2018-07-29] MEDS: Levofloxacin 750 MG/150 ML 750 MG/150 ML BAG IVPB SCH (13:18)
--- NOTE | 2018-07-29 14:09 | Internal Med Progress Note ---
Hospitalist Progress Note - Encounter Date of Encounter: 07/29/18 Time of Encounter: 14:07 - Subjective Interval History: has no complaints, anxious to go home, reports she would not like go to a rehab facility denies fever, chills, chest pain, SOb, N/v/D tolerating diet - Exam Vitals: Temp Pulse Resp BP Pulse Ox 98.3 F 66 14 112/59 95 07/29/18 11:00 07/29/18 11:00 07/29/18 11:00 07/29/18 11:00 07/29/18 11:00 Exam: General: Patient is alert, oriented, no acute distress, obese Head: atraumatic, normocephalic, Eye: normal appearance, PERRL, no scleral icterus, no conjunctival injection ENT: mucous membranes moist, normal external ear exam Neck: normal inspection, trachea midline, full ROM, no carotid bruits Chest: normal inspection, symmetric chest rise, kyphosis Respiratory: Good respiratory effort. Bilateral breath sounds are clear occasional wheezes in the RLL Cardiovascular: Regular rate and rhythm. s1 and s2 No clicks, rubs, gallops, or murmors. Abdomen: Bowel sounds present normoactive x-4 quadrants. Abdomen is soft, nondistended. no Epigastric tenderness. No guarding or rebound. No organomegaly noted, obese musculoskeletal: Spontaneously moving all extremities. +2 edema, no calf tenderness Skin: warm, dry, intact. ,ild erythema of the right lower extremity around the ankle with out warmth Neuro: Alert and oriented x4. Sensation light touch intact.no focal deficit Psych: Patient's affect is normal - Assessment and Plan (1) Gram-positive bacteremia Current Visit: Yes Status: Acute Assessment and Plan: 1 set of Blood c/s on 07/18 came out +ve for for S. epidermidis -> suspected contamination repeat c/s on 07/20 is also growing GPC in 1 set -> S. hominis Repeat blood cultures x 2 sets 07/24/18 and 07/25/18 are pending Continue to observe off Vancomycin. had CT T/A/P done yesterday which showed circumscribed ground glass opacities throughout both lungs. It also showed anklysosi of T7-10 vertebral body with periosteal irregularity that may be consistent with infectious/inflammatory etiologies. on IV levaquin as of 07/25/18 ID, spine and pulmonolgy on board SW and CM on board- was denied for ECF, patient would like to return home. SW aware will follow ID recommendations for discharge Abx (2) Cough Current Visit: Yes Status: Resolved Assessment and Plan: CXR 07/18/18 showed bibasilar opacities, likely atelectasis. CT chest 07/24/18 showed bilateral ground glass opacities concerning for atypical infection or inflammation. pulmonology on board on IV levaquin serology negative cryptococcal antigen negative Check S. pneumo and Legionella UAT- pending fungal serologies: Histo, Blasto, Aspergillus galactomannan, and Fungitell- in process (3) Abnormal CT scan Current Visit: Yes Status: Acute Assessment and Plan: CT scan of the chest showed periosteal irregularity at T7-T10. not likely infectious etiology as MRI on 07/26/18- No evidence of active thoracic spine infection. Dr. juarez was consulted and on board ID on board on IV levaquin ESR 43, CRP <5 Repeat blood cultures x 2 sets 07/24/18 and 07/25/18 are pending IMPRESSION: No evidence of active thoracic spine infection. Chronic T7-T10 ankylosis. Severe degenerative disc disease at T5-6, T6-7, and T10-11. (4) UTI (urinary tract infection) Current Visit: Yes Status: Suspected Assessment and Plan: Presented with UTI failed outpatient therapy, concerning for complicated UTI. Was tried on Levaquin and nitrofurantoin as an outpatient without clinical improvement lactic acid normal, US retroperitoneum unremarkable urine culture -ve now on IV levaquin ID on board S/P Ct A/p - results above (5) DVT (deep venous thrombosis) Current Visit: No Status: Acute Assessment and Plan: Prior history of DVT on Coumadin. Had supratherapeutic INR of 10.7 s/p 1 dose of Vit K INR therapeutic coumadin dosing per pharmacy (6) CAD (coronary artery disease) Current Visit: Yes Status: Chronic Assessment and Plan: Does not seem to be on aspirin or beta angelina as an outpatient on statin, BB and ASA while inpatient (7) Diabetes mellitus Current Visit: Yes Status: Chronic Assessment and Plan: Lantus 35 units HS and lispro 5 units 3 times a day with LDSS (8) Hypertension Current Visit: Yes Status: Chronic Assessment and Plan: coreg 6.25mg BID (9) Physical deconditioning Current Visit: Yes Status: Acute Assessment and Plan: PT/OT recommended SNIF placement working with SW for placement while acute issues are being managed (10) Obese Current Visit: Yes Status: Acute Assessment and Plan: BMI 39 counseled on nutrition DVT Prophylaxis: on coumadin therapeutic INR - Time Spent with Patient Total time spent is greater than 50% in coordination of care (as documented) at patient's floor/unit and/or counseling patient: Internal Medicine: Result - Labs CBC & Chem 7: 07/29/18 06:05 07/29/18 06:05 Labs: Short CBC 07/29/18 Range/Units 06:05 WBC 5.5 (4.3-11.1) K/mcL Hgb 11.5 (11.5-15.4) g/dL Hct 34.7 L (35.3-44.9) % Plt Count 252 (140-400) K/mcL BMP 07/29/18 06:05 Sodium 142 Potassium 4.5 Chloride 106 Carbon Dioxide 29 BUN 20 Creatinine 0.86 Glucose 134 H Calcium 9.6 - ABG Interpretation ABG results: PT/INR, D-dimer PT 29.5 Seconds (9.4-12.1) H 07/29/18 06:05 Consult Discharge Plan - Plan Referrals: Wiliam Rangel DO [Primary Care Provider] - (4) UTI (urinary tract infection) Qualifiers: Urinary tract infection type: site unspecified Hematuria presence: without hematuria Qualified Code(s): N39.0 - Urinary tract infection, site not specified (5) DVT (deep venous thrombosis) Qualifiers: DVT location: lower extremity Affected thrombotic vein of extremity: unspecified vein of extremity Chronicity: unspecified Laterality: unspecified laterality Qualified Code(s): I82.409 - Acute embolism and thrombosis of unspecified deep veins of unspecified lower extremity (6) CAD (coronary artery disease) Qualifiers: Coronary Disease-Associated Artery/Lesion type: unspecified vessel or lesion type [place] vs. transplanted heart: [place] heart Associated angina: without angina Qualified Code(s): I25.10 - Atherosclerotic heart disease of [place] coronary artery without angina pectoris (7) Diabetes mellitus Qualifiers: Diabetes mellitus type: type 2 Diabetes mellitus longterm insulin use: with meterman use Diabetes mellitus complication status: with unspecified complications Qualified Code(s): E11.8 - Type 2 diabetes mellitus with unspecified complications; Z79.4 - exterminator (current) use of insulin (8) Hypertension Qualifiers: Hypertension type: unspecified Qualified Code(s): I10 - Essential (primary) hypertension
--- NOTE | 2018-07-29 15:18 | Discharge Summary ---
- NOTES TO OUTPATIENT PROVIDER Notes to Outpatient Provider: follow up final bcx. follow up blood glucose levels. follow pulmonology - follow-up images in 1-2 months and can follow up as outpatient. lazaro de santiago on pendingorders below Orders not resulted at time of discharge: Pending orders 07/24/18 14:23 Culture,Blood [BC] Stat 07/25/18 14:42 Aspergillus galactomannan Ag Stat Blastomyces Ab by EIA, rflx ID Stat Culture,Blood [BC] Stat Histoplasma Antigen Stat 07/30/18 04:00 PT/INR [Prothrombin Time INR] [COAG] AM 0400 Date of Encounter: 07/30/18 Time of Encounter: 07:00 - Discharge Diagnosis (1) UTI (urinary tract infection) Priority: Primary Status: Suspected Qualifiers: Urinary tract infection type: site unspecified Hematuria presence: without hematuria Qualified Code(s): N39.0 - Urinary tract infection, site not specified (2) Gram-positive bacteremia Priority: Secondary Status: Acute (3) Cough Priority: Secondary Status: Resolved (4) Abnormal CT scan Priority: Secondary Status: Acute (5) DVT (deep venous thrombosis) Priority: Secondary Status: Acute Qualifiers: DVT location: lower extremity Affected thrombotic vein of extremity: unspecified vein of extremity Chronicity: unspecified Laterality: unspecified laterality Qualified Code(s): I82.409 - Acute embolism and thrombosis of unspecified deep veins of unspecified lower extremity (6) CAD (coronary artery disease) Priority: Secondary Status: Chronic Qualifiers: Coronary Disease-Associated Artery/Lesion type: unspecified vessel or lesion type [place] vs. transplanted heart: [place] heart Associated angina: without angina Qualified Code(s): I25.10 - Atherosclerotic heart disease of [place] coronary artery without angina pectoris (7) Diabetes mellitus Priority: Secondary Status: Chronic Qualifiers: Diabetes mellitus type: type 2 Diabetes mellitus [facility] insulin use: with termination clerk use Diabetes mellitus complication status: with unspecified complications Qualified Code(s): E11.8 - Type 2 diabetes mellitus with unspecified complications; Z79.4 - moth exterminator (current) use of insulin (8) Hypertension Priority: Secondary Status: Chronic Qualifiers: Hypertension type: unspecified Qualified Code(s): I10 - Essential (primary ) hypertension (9) Physical deconditioning Priority: Secondary Status: Acute (10) Obese Priority: Secondary Status: Acute Qualifiers: Obesity type: due to excess calories Serious obesity comorbidity presence: without serious comorbidity Body mass index: BMI 38.0-38.9 Qualified Code(s) : E66.09 - Other obesity due to excess calories; Z68.38 - Body mass index (BMI) 38.0-38.9, adult Hospital course: Ms. Cleaning is a 77 year old female with history of diabetes, CAD status post PCI , DVT, hyperlipidemia, hypothyroidism, presented to the ED with persistent dysuria. She states that her symptom first started around 9 weeks before admission but she only sought after medical size about 3 before admission when she was first given a course of Levaquin. According to the family, urine culture later came back with an organism that was sensitive to nitrofurantoin and it was switched to macrobid about a week before admission. In the ED, she was afebrile and hemodynamically stable. Investigation showed leukocytosis of 11.7, creatinine of 1.12 (unknown baseline), and negative troponin. Urinalysis showed large amount of leukocyte esterase. Chest x-ray did not show any acute cardiopulmonary process. She was given IV Rocephin in the ED and admitted for further management. Ultrasound retroperitoneum today to rule out obstructive uropathy. Creatinine trended down with IV fluids. Blood cultures drawn 07/18/18 were positive 1/2 sets for S. epi. Repeat blood cultures 07/20/18 were positive 1 /2 sets for S. hominis. Infectious disease was consulted for more sets of blood cultures were sent on 07/24 final negative and 07/25 remained negative till 07/[address] chest, abdomen and pelvis was done as per ID recommendations, results below. Spine surgery was consulted for findings on CT abdomen and pelvis was recommended to have MRI with contrast performed- results below. as per sine surgery No concerns for active infection, discitis, or osteomyelitis. She can be treated symptomatically with regard to any spine complaints which may include outpatient physical therapy. Abx were adjusted by ID. pulmonology was consulted for lung findings on CT along with cough- recommendations followed. she is to follow with pulmonology as OP and have imaging repeated In addition to above INR was supratherapeutic at 10.7 on admission she was treated with vitamin K and INR became therapeutic. PT/OT ad SW/CM consulted ad recommendations followed ID recommendations for OP Abx appreciated. Levaquin [id number]- Treat through 08/03/18. prescription provided appointment for coumadin clinic was made for felipe for morning of 07/31, appointment with PCP, pulmonlogy and ID were provided by she understands the importance of following with coumadin clinic for her INR as it was supratherapuetic on admission. she was counseled on nutrition and importance of compliance to medications she has had history of CAD not on BB or ASA as OP. both medications were started while in hospital and tolerated by patient. she is to follow with her examination grader and PCP for further titration and dose adjustment fungal serology: Histo (pending), Blasto (pending), Crypto (negative), Aspergillus galactomannan (negative), and Fungitell (negative) CT chest Abdomen an pelvis:IMPRESSION: 1. Circumscribed ground-glass opacities throughout both lungs may represent an atypical infectious process or inflammatory process. Malignancy is felt to be unlikely. 2. Ankylosis of the T7-T10 vertebral body with disproportionate osteopenia and some periosteal irregularity. Infectious versus inflammatory etiologies must be considered. An atypical fungal infection may account for these findings. 3. Symmetric perinephric edema is most likely incidental in nature but can also be seen in the setting of acute renal insufficiency. 4. Diverticulosis without evidence of diverticulitis. The findings were sent to the [facility] at 11:47 pm on 07/24/2018to be communicated to a licensed caregiver thoracic spine mRI with contrast IMPRESSION: No evidence of active thoracic spine infection. Chronic T7-T10 ankylosis. Severe degenerative disc disease at T5-6, T6-7, and T10-11. retroperitoneal comp IMPRESSION: Unremarkable ultrasound of the kidneys and urinary bladder. chest 1V portable IMPRESSION: 1. Probable small right pleural effusion with bibasilar opacities, likely reflecting atelectasis given low lung volumes. 2. Deformity of the right proximal humerus likely related to prior trauma. . - Time Spent with Patient Total time spent providing and/or coordinating discharge services: Greater than 30 minutes (40) - Discharge Medications Prescriptions: Aspirin 81 mg PO DAILY #30 tab.chew Carvedilol [Coreg] 6.25 mg PO BIDWM #60 tablet Levofloxacin [Levaquin] 750 mg PO Q48H #2 tablet Home Medications: Atorvastatin Calcium [Lipitor] 20 mg PO QPM 07/18/18 [History] Gabapentin [Neurontin] 300 mg PO BID 07/18/18 [History] Insulin ASPART [NovoLOG] 5 unit SQ TID 07/18/18 [History] Insulin Glargine [Lantus] 45 unit SQ HS 07/18/18 [History] Levothyroxine [Synthroid] 100 mcg PO QAM 07/18/18 [History] Metformin HCl 1,000 mg PO BID 07/18/18 [History] Spironolactone [Aldactone] 25 mg PO DAILY 07/18/18 [History] Warfarin Sodium 7.5 mg PO DAILY 07/18/18 [History] Aspirin 81 mg PO DAILY #30 tab.chew 07/30/18 [Rx] Carvedilol [Coreg] 6.25 mg PO BIDWM #60 tablet 07/30/18 [Rx] Levofloxacin [Levaquin] 750 mg PO Q48H #2 tablet 07/30/18 [Rx] Allergies/Adverse Reactions: 3 Allergy/AdvReac Type Severity Reaction Status Date / Time sulfamethoxazole Allergy Shakiness Verified 07/18/18 12:33 [From Bactrim] trimethoprim [From Bactrim] Allergy Shakiness Verified 07/18/18 12:33 Date of admission: 07/18/18 17:40 Primary care physician: Wiliam Rangel Consults: 07/19/18 07:45 Consult to Occupational Therapy [CONS] Routine Comment: Evaluate, develop and implement POC Reason for Consult: deconditioning due to acute illness ?need for short term rehab Does patient have active BEDREST order?: No Is patient medically & hemodynamically stable?: Yes Consult to Physical Therapy [CONS] Routine Comment: Evaluate, develop and implement POC Reason for Consult: deconditioning due to acute illness ?need for short term rehab Does patient have active BEDREST order?: No Is patient medically & hemodynamically stable?: Yes 07/22/18 09:11 Consult to Cell Assembly Pinner [CONS] Routine Reason for SW Consult: PT/OT rec SNF; (Sophia saw in ER) 07/23/18 10:44 Consult to Infectious Diseases [CONS] Routine Consulting Provider: Infectious Disease [place] Reason for Consult: S. epidermidis and S. hominis in 2 separate blood cultures, ?significance. PAtient being treated for complicated UTI with rocephin Call Completed: Yes 07/25/18 11:03 Consult to Pulmonology [CONS] Routine Consulting Provider: Pulm [facility] Reason for Consult: circumscribed ground glass opacities in both lungs, blood culture +ve for GPC in 2 different sets, ?atypical infection Call Completed: Yes 07/25/18 11:08 Consult to Orthopedic Surgery [CONS] Routine Consulting Provider: Castro Vega Jr Reason for Consult: blood cultures +ve for S. epidermiditis and S. hominis with thoracic spine finding of ankylosis of T7-10 vertebral body with periosteal irregularity Call Completed: Yes - Constitutional Vitals: Temp Pulse Resp BP Pulse Ox 98.3 F 66 14 112/59 95 07/29/18 11:00 07/29/18 11:00 07/29/18 11:00 07/29/18 11:00 07/29/18 11:00 Exam: General: Patient is alert, oriented, no acute distress, obese Head: atraumatic, normocephalic, Eye: normal appearance, PERRL, no scleral icterus, no conjunctival injection ENT: mucous membranes moist, normal external ear exam Neck: normal inspection, trachea midline, full ROM, no carotid bruits Chest: normal inspection, symmetric chest rise, kyphosis Respiratory: Good respiratory effort. Bilateral breath sounds are clear occasional wheezes in the RLL Cardiovascular: Regular rate and rhythm. s1 and s2 No clicks, rubs, gallops, or murmors. Abdomen: Bowel sounds present normoactive x-4 quadrants. Abdomen is soft, nondistended. no Epigastric tenderness. No guarding or rebound. No organomegaly noted, obese musculoskeletal: Spontaneously moving all extremities. trace edema, no calf tenderness Skin: warm, dry, intact. ,ild erythema of the right lower extremity around the ankle with out warmth Neuro: Alert and oriented x4. Sensation light touch intact.no focal deficit Psych: Patient's affect is normal - Patient Status Disposition: Home Health Service Condition: Good - Discharge Instructions Follow Up With: [facility] [Other] - 07/31/18 9:15 am (This visit will be in [place]. The office in [place] will be closed tomorrow. Thank you) Jessie Giles MD [Partnered Physician] - 09/01/18 10:00 am Wiliam Rangel DO [Primary Care Provider] - 08/04/18 2:00 pm - Diet and Activity Activity: as per physical therapy Diet: diabetic diet
--- NOTE | 2018-07-29 17:48 | Infectious Disease Progress No ---
Date of Encounter: 07/29/18 Time of Encounter: 11:00 - Assessment and Plan (1) Sepsis Current Visit: Yes Status: Resolved The patient had two SIRS criteria including leukocytosis and fevers at home. Etiology unclear. The patient had UTI symptoms on admission, but her urine was negative. She does have a dry cough, so consider pneumonia vs. other intra- abdominal source. Improved. WBC has normalized. She has been afebrile since admission. Blood cultures drawn 07/18/18 were positive 1/2 sets for S. epi. Repeat blood cultures 07/20/18 were positive 1/2 sets for S. hominis. Repeat blood cultures 07/24/18 are NGTD x 2 sets. Qualifiers: Sepsis type: sepsis due to unspecified organism Qualified Code(s): A41.9 - Sepsis, unspecified organism (2) Cough Current Visit: Yes Status: Resolved Persistent dry, hacky cough. CXR 07/18/18 showed bibasilar opacities, likely atelectasis. CT chest 07/24/18 showed bilateral ground glass opacities concerning for atypical infection or inflammation. Recommend pulmonary to evaluate. Check RIP.--> negative Check S. pneumo and Legionella UAT. --> not collected. Send fungal serologies: Histo (pending), Blasto (pending), Crypto (negative), Aspergillus galactomannan (negative), and Fungitell (negative). Continue Levaquin 750mg IV Q48H. (day 5) Duration of treatment depends on the clinical picture, but likely a total of 10 days. Can transition to PO antibiotics when ready for discharge. Treat through . Recommend follow-up with pulmonology as an outpatient. Monitor renal function and dose-adjust antibiotics. (3) Abnormal CT scan Current Visit: Yes Status: Acute CT scan of the chest showed periosteal irregularity at T7-T10. Etiology unclear: infectious vs. degenerative. Dr. Vega consulted. Appreciate recommendations. MRI negative for infectious etiology. (4) Bacteremia Current Visit: Yes Status: Resolved Causative organism: S. epi and S. hominis. Blood cultures drawn 07/18/18 were positive 1/2 sets for S. epi. Repeat blood cultures drawn 07/20/18 were positive 1/2 sets for S. hominis. Given the clinical picture, likely a contaminant. Repeat blood cultures x 2 sets 07/24/18 are NGTD. Continue to observe off Vancomycin. (5) UTI (urinary tract infection) Current Visit: Yes Status: Suspected The patient had urinary symptoms including dysuria, frequency, and bilateral flank pain on admission. Causative organism unclear, but likely E. coli based on the previous urine cultures from [facility]. Complicated. The patient reports bilateral flank pain prior to admission which rises concern for possible pyelonephritis, although the patient's urinalysis and culture are negative. Additionally, her RP UTS was negative for pyelo. Urinalysis 07/18/18 contaminated. Culture was negative. Previous cultures at [facility] grew E. coli both times. Failed outpatient oral antibiotics. May need to consider other source of the patient's sepsis. Recommend CT of the abdomen and pelvis to evaluate. Clinically improved on IV Rocephin. Patient switched to PO Keflex by the primary team. Discontinue Keflex. Continue Levaquin 750mg IV Q48H to cover both the urine and the lungs. Duration of treatment depends on the clinical picture. Qualifiers: Urinary tract infection type: site unspecified Hematuria presence: without hematuria Qualified Code(s): N39.0 - Urinary tract infection, site not specified (6) Hypercoagulable state Current Visit: Yes Status: Resolved Etiology unclear. INR 10.7 on admission. Resolved. Management per the primary team. (7) CAD (coronary artery disease) Current Visit: Yes Status: Chronic Qualifiers: Coronary Disease-Associated Artery/Lesion type: unspecified vessel or lesion type [place] vs. transplanted heart: [place] heart Associated angina: without angina Qualified Code(s): I25.10 - Atherosclerotic heart disease of [place] coronary artery without angina pectoris (8) Diabetes mellitus Current Visit: Yes Status: Chronic Recommend aggressive glucose monitoring and control. Management per the primary team. Qualifiers: Diabetes mellitus type: type 2 Diabetes mellitus predatory animal exterminator insulin use: with predatory animal exterminator use Diabetes mellitus complication status: with unspecified complications Qualified Code(s): E11.8 - Type 2 diabetes mellitus with unspecified complications; Z79.4 - long term (current) use of insulin (9) Hypertension Current Visit: Yes Status: Chronic Qualifiers: Hypertension type: unspecified Qualified Code(s): I10 - Essential (primary ) hypertension (10) Intertriginous candidiasis Current Visit: Yes Status: Acute Nystatin powder to the effected areas. - Subjective Interval history: Patient seen and examined. No acute events noted overnight. Patient sitting up in the chair. States overall she feels 100% better. Denies fevers, chills, or rigors. Denies chest pain or shortness of breath. States her cough is much better. Denies nausea, vomiting, or diarrhea. Denies abdominal pain, urinary complaints, or appetite changes. Denies oral thrush. She does report a rash to her inguinal folds. States dysuria and urinary frequency and flank pain have resolved. Reports chronic lower back pain that is at baseline. Infect Dis PN-Objective Data - Labs CBC & Chem 7: 07/29/18 06:05 07/29/18 06:05 Labs: Laboratory Results - last 24 hr 07/25/18 07/25/18 07/28/18 14:42 14:42 06:57 WBC RBC Hgb Hct MCV MCH MCHC RDW Plt Count MPV PT INR Sodium Potassium Chloride Carbon Dioxide BUN Creatinine Est GFR ( Amer) Est GFR (Non-Af Amer) BUN/Creatinine Ratio Glucose POC Glucose 173 H Calculated Osmolality Calcium A. galactomannan Ag NEGATIVE A. galactomannan Ag Idx 0.03 Beta-(1,3)-D-Glucan <31 B-(1,3)-D-Glucan Intrp NEGATIVE 07/28/18 07/28/18 07/28/18 11:19 16:00 21:04 WBC RBC Hgb Hct MCV MCH MCHC RDW Plt Count MPV PT INR Sodium Potassium Chloride Carbon Dioxide BUN Creatinine Est GFR ( Amer) Est GFR (Non-Af Amer) BUN/Creatinine Ratio Glucose POC Glucose 296 H 197 H 214 H Calculated Osmolality Calcium A. galactomannan Ag A. galactomannan Ag Idx Beta-(1,3)-D-Glucan B-(1,3)-D-Glucan Intrp 07/29/18 07/29/18 07/29/18 06:05 06:05 06:05 WBC 5.5 RBC 3.74 L Hgb 11.5 Hct 34.7 L MCV 92.8 MCH 30.7 MCHC 33.1 RDW 15.9 H Plt Count 252 MPV 10.2 PT 29.5 H INR 2.6 Sodium 142 Potassium 4.5 Chloride 106 Carbon Dioxide 29 BUN 20 Creatinine 0.86 Est GFR ( Amer) > 60 Est GFR (Non-Af Amer) > 60 BUN/Creatinine Ratio 23 Glucose 134 H POC Glucose Calculated Osmolality 299 Calcium 9.6 A. galactomannan Ag A. galactomannan Ag Idx Beta-(1,3)-D-Glucan B-(1,3)-D-Glucan Intrp 07/29/18 07/29/18 07:52 11:02 WBC RBC Hgb Hct MCV MCH MCHC RDW Plt Count MPV PT INR Sodium Potassium Chloride Carbon Dioxide BUN Creatinine Est GFR ( Amer) Est GFR (Non-Af Amer) BUN/Creatinine Ratio Glucose POC Glucose 143 H 183 H Calculated Osmolality Calcium A. galactomannan Ag A. galactomannan Ag Idx Beta-(1,3)-D-Glucan B-(1,3)-D-Glucan Intrp Cultures: Cultures 07/24/18 14:23 Blood Culture - Final Peripheral Venipuncture No growth. Final report. 07/24/18 14:23 Blood Culture - Final Peripheral Venipuncture No growth. Final report. 07/25/18 14:42 Cryptococcal Antigen - Final Serum 07/25/18 14:42 Blood Culture - Preliminary Peripheral Venipuncture Culture is incubating and being continuously monitored for growth. Final report to follow. 07/25/18 14:37 Blood Culture - Preliminary Peripheral Venipuncture Culture is incubating and being continuously monitored for growth. Final report to follow. 07/20/18 06:57 Blood Culture - Final Peripheral Venipuncture No growth. Final report. 07/20/18 06:57 Blood Culture - Final Peripheral Venipuncture Staphyloco hominis ssp hominis Serology 07/25/18 07/25/18 07/25/18 Range/Units 20:40 14:42 14:42 A. baumannii (PCR) (Not Detect) Chlamy pneumoniae PCR Not Detected (Not Detect) Adenovirus (PCR) Not Detected (Not Detect) B. pertussis DNA (PCR) Not Detected (Not Detect) B.parapertussis DNA PCR Not Detected (Not Detect) Angeline albicans (PCR) (Not Detect) C. glabrata (PCR) (Not Detect) C. krusei (PCR) (Not Detect) C. parapsilosis (PCR) (Not Detect) C. tropicalis (PCR) (Not Detect) Coronavirus OC43 (PCR) Not Detected (Not Detect) Coronavirus HKU1 (PCR) Not Detected (Not Detect) Coronavirus 229E (PCR) Not Detected (Not Detect) Coronavirus NL63 (PCR) Not Detected (Not Detect) Enterobacteriac sp PCR (Not Detect) E. cloacae complex PCR (Not Detect) Enterococcus sp PCR (Not Detect) E. coli (PCR) (Not Detect) H. influenzae (PCR) (Not Detect) Human Metapneumovir PCR Not Detected (Not Detect) Influenza A (H1) PCR Not Detected (Not Detect) Influ A (H1N1/09) PCR Not Detected (Not Detect) Influenza A (H3) PCR Not Detected (Not Detect) Influenza A Untype (PCR) Not Detected (Not Detect) Influenza Type B (PCR) Not Detected (Not Detect) Klebsiella oxytoca PCR (Not Detect) Klebsiella pneumoniae (Not Detect) List. monocytogenes PCR (Not Detect) M.pneumoniae DNA (PCR) Not Detected (Not Detect) N. meningitidis (PCR) (Not Detect) Parainfluenza 1 (PCR) Not Detected (Not Detect) Parainfluenza 2 (PCR) Not Detected (Not Detect) Parainfluenza 3 (PCR) Not Detected (Not Detect) Parainfluenza 4 (PCR) Not Detected (Not Detect) A. galactomannan Ag NEGATIVE (Negative) A. galactomannan Ag Idx 0.03 Proteus species (PCR) (Not Detect) RSV (PCR) Not Detected (Not Detect) Entero/Rhino (PCR) Not Detected (Not Detect) Serratia marcescens PCR (Not Detect) Staphylococcus sp PCR (Not Detect) Staph aureus (PCR) (Not Detect) mecA-Methicil Res Gene (Not Detect) Streptococcus sp PCR (Not Detect) Group A Strep DNA (Not Detect) Group B Strep (PCR) (Not Detect) Strep pneumoniae (PCR) (Not Detect) P. aeruginosa (PCR) (Not Detect) Deborah/B-Vanco Res Genes (Not Detect) KPC (blaKPC) Detect PCR (Not Detect) Beta-(1,3)-D-Glucan <31 pg/mL B-(1,3)-D-Glucan Intrp NEGATIVE (Negative) 07/20/18 Range/Units 06:57 A. baumannii (PCR) Not Detected (Not Detect) Chlamy pneumoniae PCR (Not Detect) Adenovirus (PCR) (Not Detect) B. pertussis DNA (PCR) (Not Detect) B.parapertussis DNA PCR (Not Detect) Angeline albicans (PCR) Not Detected (Not Detect) C. glabrata (PCR) Not Detected (Not Detect) C. krusei (PCR) Not Detected (Not Detect) C. parapsilosis (PCR) Not Detected (Not Detect) C. tropicalis (PCR) Not Detected (Not Detect) Coronavirus OC43 (PCR) (Not Detect) Coronavirus HKU1 (PCR) (Not Detect) Coronavirus 229E (PCR) (Not Detect) Coronavirus NL63 (PCR) (Not Detect) Enterobacteriac sp PCR Not Detected (Not Detect) E. cloacae complex PCR Not Detected (Not Detect) Enterococcus sp PCR Not Detected (Not Detect) E. coli (PCR) Not Detected (Not Detect) H. influenzae (PCR) Not Detected (Not Detect) Human Metapneumovir PCR (Not Detect) Influenza A (H1) PCR (Not Detect) Influ A (H1N1/09) PCR (Not Detect) Influenza A (H3) PCR (Not Detect) Influenza A Untype (PCR) (Not Detect) Influenza Type B (PCR) (Not Detect) Klebsiella oxytoca PCR Not Detected (Not Detect) Klebsiella pneumoniae Not Detected (Not Detect) List. monocytogenes PCR Not Detected (Not Detect) M.pneumoniae DNA (PCR) (Not Detect) N. meningitidis (PCR) Not Detected (Not Detect) Parainfluenza 1 (PCR) (Not Detect) Parainfluenza 2 (PCR) (Not Detect) Parainfluenza 3 (PCR) (Not Detect) Parainfluenza 4 (PCR) (Not Detect) A. galactomannan Ag (Negative) A. galactomannan Ag Idx Proteus species (PCR) Not Detected (Not Detect) RSV (PCR) (Not Detect) Entero/Rhino (PCR) (Not Detect) Serratia marcescens PCR Not Detected (Not Detect) Staphylococcus sp PCR DETECTED A (Not Detect) Staph aureus (PCR) Not Detected (Not Detect) mecA-Methicil Res Gene Not Detected (Not Detect) Streptococcus sp PCR Not Detected (Not Detect) Group A Strep DNA Not Detected (Not Detect) Group B Strep (PCR) Not Detected (Not Detect) Strep pneumoniae (PCR) Not Detected (Not Detect) P. aeruginosa (PCR) Not Detected (Not Detect) Deborah/B-Vanco Res Genes N/A (Not Detect) KPC (blaKPC) Detect PCR N/A (Not Detect) Beta-(1,3)-D-Glucan pg/mL B-(1,3)-D-Glucan Intrp (Negative) Exam - Constitutional Vitals: Temp Pulse Resp BP Pulse Ox 98.3 F 66 14 112/59 95 07/29/18 11:00 07/29/18 11:07/29/18 11:00 07/29/18 11:07/29/18 11:00 General appearance: cooperative, no acute distress, obese - Head Head exam: Present: atraumatic, normal inspection, normocephalic - Eye Eye exam: Present: EOMI, normal appearance, PERRL Pupils: Present: normal accommodation - ENT ENT exam: Present: mucous membranes moist - Neck Neck exam: Present: normal inspection - Respiratory Respiratory exam: Present: CTAB. Absent: rales, respiratory distress, rhonchi, wheezes - Cardiovascular Cardiovascular exam: Present: RRR, +S1, +S2 - GI/Abdominal GI/Abdominal exam: Present: distended (obese), normal bowel sounds, soft. Absent: tenderness - Extremities Exam Extremities exam: Present: normal inspection, pedal edema (1+ BLE). Absent: joint swelling, tenderness - Neurological Exam Neurological exam: Present: alert, oriented X3, no focal deficits - Psychiatric Psychiatric exam: Present: normal affect, normal mood - Skin Skin exam: Present: dry, intact, normal color, rash (Yeast-like rash noted to the lower abdominal and inguinal folds.), warm Consult Discharge Plan - Plan Referrals: Wiliam Rangel DO [Primary Care Provider] - - Attending Attestation I examined this patient and my medical decision-making was reviewed with the Resident Physician. I agree with the documented findings, disposition and treatment plan as described except to the extent set forth below.
[2018-07-29] MEDS ORDERED: *HR* Warfarin 7.5 MG TABLET PO ONE (18:00)
[2018-07-29] MEDS: Insulin DETEMIR 100 UNIT/ML X5UNITS SQ SCH (20:42)
[2018-07-30 05:56] LABS: INR 2.8; Prothrombin Time 31.4 Seconds (9.4-12.1)
[2018-07-30 07:00] VITALS: BP 106/68
[2018-07-30] MEDS: Insulin LISPRO 300 UNITS/3 ML VIAL SQ SCH ×4 (09:20→12:04)
[2018-07-30] MEDS: Gabapentin 300 MG CAPSULE PO SCH (09:23)
[2018-07-30] MEDS: Aspirin 81 MG TAB.CHEW PO SCH (09:23)
--- NOTE | 2018-07-30 10:26 | Physician Discharge Referral ---
Home Health/Hosp Referral Info Transfer to: Home Health - Diagnosis (1) UTI (urinary tract infection) Priority: Primary Status: Suspected (2) Gram-positive bacteremia Priority: Secondary Status: Acute (3) Cough Priority: Secondary Status: Resolved (4) Abnormal CT scan Priority: Secondary Status: Acute (5) DVT (deep venous thrombosis) Priority: Secondary Status: Acute (6) CAD (coronary artery disease) Priority: Secondary Status: Chronic (7) Diabetes mellitus Priority: Secondary Status: Chronic (8) Hypertension Priority: Secondary Status: Chronic (9) Physical deconditioning Priority: Secondary Status: Acute (10) Obese Priority: Secondary Status: Acute - Respiratory Orders Smoking Cessation: Smoking cessation has been advised. For more information, call the [employer] Quit Line at [phone]. - Diet/Nutrition Diet/Nutrition Orders: Cardiac (diabetic) - Activity Activity Orders: Ambulate - Services Needed Following services are medically necessary services: Home Health Aide, Physical Therapy - Transfer Medications Prescriptions: Aspirin 81 mg PO DAILY #30 tab.chew Carvedilol [Coreg] 6.25 mg PO BIDWM #60 tablet Levofloxacin [Levaquin] 750 mg PO Q48H #2 tablet Home Medications: Atorvastatin Calcium [Lipitor] 20 mg PO QPM 07/18/18 [History] Gabapentin [Neurontin] 300 mg PO BID 07/18/18 [History] Insulin ASPART [NovoLOG] 5 unit SQ TID 07/18/18 [History] Insulin Glargine [Lantus] 45 unit SQ HS 07/18/18 [History] Levothyroxine [Synthroid] 100 mcg PO QAM 07/18/18 [History] Metformin HCl 1,000 mg PO BID 07/18/18 [History] Spironolactone [Aldactone] 25 mg PO DAILY 07/18/18 [History] Warfarin Sodium 7.5 mg PO DAILY 07/18/18 [History] Aspirin 81 mg PO DAILY #30 tab.chew 07/30/18 [Rx] Carvedilol [Coreg] 6.25 mg PO BIDWM #60 tablet 07/30/18 [Rx] Levofloxacin [Levaquin] 750 mg PO Q48H #2 tablet 07/30/18 [Rx] Allergies/Adverse Reactions: 3 Allergy/AdvReac Type Severity Reaction Status Date / Time sulfamethoxazole Allergy Shakiness Verified 07/18/18 12:33 [From Bactrim] trimethoprim [From Bactrim] Allergy Shakiness Verified 07/18/18 12:33 Certification: Further, I certify that my clinical findings support that this patient is homebound (i.e. absences from home require considerable and taxing effort and are for medical reasons or syn[employer] services or infrequently or short duration when for other reasons) because: Homebound Reason: Patient requires assistance of a person or device to safely leave home Attestation: My signature below is to certify that this patient is under my care and that I, or nurse practitioner, or a physician's optometrist assistant working with me, has a face-to -face encounter with this patient.
[2018-07-30] MEDS ORDERED: *HR* Warfarin 7.5 MG TABLET PO ONE (18:00)
== END 2018-07-30 13:17 | disposition home health service (06) | DRG 872 ==
LOC: SUATTDRO → 3ANU 12:03 → EMEROOARM 12:03 → SUATTDRO 17:19 → 3ANU 18:30
PROVIDERS: ADMIT Internal Medicine; ATTEND Internal Medicine

== ENCOUNTER 2019-11-26 15:18 | Inpatient (IN) ==
[2019-11-26] MEDS ORDERED: Naloxone 0.4 MG/ML INJ IVP PRN (17:25)
[2019-11-26] MEDS ORDERED: Ondansetron 4 MG/2 ML VIAL IVP PRN (17:25)
[2019-11-26] MEDS ORDERED: D5% in Water 1,000 ML IVC PRN (17:45)
[2019-11-26] MEDS ORDERED: Dextrose Gel 15 GM/37.5 ML TUBE PO PRN ×2 (17:45)
[2019-11-26] MEDS ORDERED: *HR* Dextrose 50 % in Water (Syg) 50 ML SYRINGE IVP PRN (17:45)
[2019-11-26] MEDS ORDERED: Insulin DETEMIR 100 UNIT/ML X5UNITS SQ SCH (21:00)
[2019-11-26] MEDS: Aspirin 81 MG TAB.CHEW PO SCH (22:20)
[2019-11-26] MEDS: Insulin LISPRO 300 UNITS/3 ML VIAL SQ SCH (22:21)
[2019-11-27 03:09] LABS: Basophils % 0.4 %; Eosinophils # 0.1 K/mcL (0.0-0.6); Eosinophils % 1.7 %; Hematocrit 33.4 % (35.3-44.9); Hemoglobin 11.2 g/dL (11.5-15.4); Immature Granulocytes % 0.5 % (0-4); Lymphocytes % 24.3 %; Mean Corpuscular HGB Conc 33.5 g/dL (31.6-35.5); Mean Corpuscular Hemoglobin 30.4 pg (28.0-33.3); Mean Corpuscular Volume 90.8 fL (83.0-100.0); Mean Platelet Volume 10.9 fL (9.4-12.4); Monocytes # 0.8 K/mcL (0.0-1.3); Monocytes % 9.4 %; Neutrophils # 5.2 K/mcL (1.6-8.9); Platelet Count 193 K/mcL (140-400); Red Blood Count 3.68 M/mcL (3.82-4.97); Red Cell Distribution Width 14.2 % (11.5-14.5); Segmented Neutrophils % 63.7 %; White Blood Count 8.2 K/mcL (4.3-11.1)
[2019-11-27 03:13] LABS: Calcium 9.6 mg/dL (8.6-10.3); Chol/HDL Ratio 4.5 (0-4.9); Potassium 4.3 mEq/L (3.5-5.1)
[2019-11-27] MEDS: Insulin LISPRO 300 UNITS/3 ML VIAL SQ SCH ×3 (09:12→16:48)
[2019-11-27] MEDS: Aspirin 81 MG TAB.CHEW PO SCH (09:12)
[2019-11-27] MEDS ORDERED: Isovue-370 500 ML BOTTLE IVP ONE (12:36)
[2019-11-27 12:49] LABS: INR 1.9; Prothrombin Time 21.4 Seconds (9.4-12.1)
[2019-11-27] MEDS ORDERED: Warfarin perPT PO PRN (18:00)
[2019-11-27] MEDS ORDERED: *HR* Warfarin 7.5 MG TABLET PO ONE (18:00)
[2019-11-27] MEDS: Insulin DETEMIR 100 UNIT/ML X5UNITS SQ SCH (20:56)
[2019-11-28 04:59] LABS: INR 1.4; Prothrombin Time 16.3 Seconds (9.4-12.1)
[2019-11-28 05:05] LABS: BUN/Creatinine Ratio 20 (6-26); Blood Urea Nitrogen 18 mg/dL (8-23); Calcium 9.7 mg/dL (8.6-10.3); Carbon Dioxide 29 mEq/L (23-29); Chloride 104 mEq/L (98-107); Glucose 147 mg/dL (70-105); Osmolality,Calculated 293 (280-300); Potassium 4.1 mEq/L (3.5-5.1); Sodium 139 mEq/L (136-145); eGFR For African Americans > 60 (> 60); eGFR For Non-African Americans > 60 (> 60)
[2019-11-28 05:08] LABS: Basophils % 0.4 %; Eosinophils # 0.2 K/mcL (0.0-0.6); Eosinophils % 2.2 %; Hemoglobin 11.6 g/dL (11.5-15.4); Immature Granulocytes % 0.3 % (0-4); Lymphocytes # 2.1 K/mcL (0.6-4.6); Lymphocytes % 31.2 %; Mean Corpuscular HGB Conc 34.1 g/dL (31.6-35.5); Mean Corpuscular Hemoglobin 30.9 pg (28.0-33.3); Mean Corpuscular Volume 90.7 fL (83.0-100.0); Mean Platelet Volume 10.7 fL (9.4-12.4); Monocytes # 0.6 K/mcL (0.0-1.3); Monocytes % 9.5 %; Neutrophils # 3.8 K/mcL (1.6-8.9); Platelet Count 190 K/mcL (140-400); Red Blood Count 3.75 M/mcL (3.82-4.97); Segmented Neutrophils % 56.4 %; White Blood Count 6.8 K/mcL (4.3-11.1)
[2019-11-28 07:55] LABS: Estimated Average Glucose 212 mg/dl
[2019-11-28] MEDS: Insulin LISPRO 300 UNITS/3 ML VIAL SQ SCH ×3 (08:16→18:02)
[2019-11-28] MEDS: Aspirin 81 MG TAB.CHEW PO SCH (09:20)
[2019-11-28] MEDS ORDERED: *HR* Warfarin 7.5 MG TABLET PO ONE (18:00)
[2019-11-28] MEDS: Gabapentin 300 MG CAPSULE PO SCH (21:07)
[2019-11-28] MEDS: Insulin DETEMIR 100 UNIT/ML X5UNITS SQ SCH (21:07)
[2019-11-29 03:26] LABS: INR 1.4; Prothrombin Time 15.7 Seconds (9.4-12.1)
[2019-11-29] MEDS ORDERED: NON-FORMULARY MEDICATION 1 EACH EACH (Duloxetine Hcl [Cymbalta] 60 MG) PO SCH (09:00)
[2019-11-29] MEDS: Insulin LISPRO 300 UNITS/3 ML VIAL SQ SCH ×3 (09:52→17:46)
[2019-11-29] MEDS: Aspirin 81 MG TAB.CHEW PO SCH (09:52)
[2019-11-29] MEDS ORDERED: *HR* Warfarin 7.5 MG TABLET PO ONE (18:00)
[2019-11-29] MEDS: Gabapentin 300 MG CAPSULE PO SCH (20:38)
[2019-11-29] MEDS: Insulin DETEMIR 100 UNIT/ML X5UNITS SQ SCH (20:38)
[2019-11-30 05:38] LABS: INR 1.6; Prothrombin Time 18.1 Seconds (9.4-12.1)
[2019-11-30 08:08] VITALS: BP 102/58
[2019-11-30] MEDS: Aspirin 81 MG TAB.CHEW PO SCH (08:29)
[2019-11-30] MEDS: Insulin LISPRO 300 UNITS/3 ML VIAL SQ SCH (08:30)
== END 2019-11-30 11:53 | DRG 66 ==
LOC: 3BNU → SUATTDRO 16:42
PROVIDERS: ADMIT Family Medicine; ATTEND Family Medicine